=== PATIENT | male | born 1945 | race Caucasian/White ===

== ENCOUNTER → 2020-10-01 13:30 | Outpatient (BNVA) | payer OTHER, SELFPAY | PROVIDERS: PCP Internal Medicine; Visit Provider Urology | DX: Z76.89 Persons encountering health services in other specified circumstances (principal) ==

== ENCOUNTER → 2021-07-07 09:04 | Outpatient (BNVA) | payer OTHER, SELFPAY | PROVIDERS: PCP Internal Medicine; Visit Provider Urology | DX: N40.1 Benign prostatic hyperplasia with lower urinary tract symptoms (principal); R35.0 Frequency of micturition; R35.1 Nocturia | CPT/HCPCS: 51798 ==

== ENCOUNTER 2021-08-25 10:20 | Outpatient (REF) | payer OTHER, SELFPAY ==
[2021-08-25 12:33] LABS: PSA,Total (Free>4and<10) 2.11 ng/mL (0.00-4.00)
== END 2021-08-25 10:21 | disposition home or self-care (01) ==
LOC: HO.HMGCLDS 10:20
PROVIDERS: PCP Internal Medicine; Visit Provider Urology
DX: Z12.5 Encounter for screening for malignant neoplasm of prostate (principal); N13.8 Other obstructive and reflux uropathy; N40.1 Benign prostatic hyperplasia with lower urinary tract symptoms
CPT/HCPCS: 36415; 84153

== ENCOUNTER → 2021-09-03 08:41 | Outpatient (BNVA) | payer OTHER, SELFPAY | PROVIDERS: PCP Internal Medicine; Visit Provider Urology ==

== ENCOUNTER → 2022-03-01 09:33 | Outpatient (BNVA) | payer OTHER, SELFPAY | PROVIDERS: PCP Internal Medicine; Visit Provider Psychiatry & Neurology Neurology | DX: R25.1 Tremor, unspecified (principal); G47.33 Obstructive sleep apnea (adult) (pediatric); R41.89 Other symptoms and signs involving cognitive functions and awareness ==

== ENCOUNTER → 2022-03-08 11:07 | Outpatient (BNVA) | payer OTHER, SELFPAY | PROVIDERS: PCP Internal Medicine; Visit Provider Urology | DX: N40.1 Benign prostatic hyperplasia with lower urinary tract symptoms (principal); R35.1 Nocturia | CPT/HCPCS: 51798 ==

== ENCOUNTER → 2023-03-09 11:38 | Outpatient (BNVA) | payer OTHER, SELFPAY | PROVIDERS: PCP Internal Medicine; Visit Provider Urology | DX: N40.1 Benign prostatic hyperplasia with lower urinary tract symptoms (principal); N13.8 Other obstructive and reflux uropathy; R33.8 Other retention of urine; R35.1 Nocturia; R41.89 Other symptoms and signs involving cognitive functions and awareness; Z79.82 Long term (current) use of aspirin; Z79.899 Other long term (current) drug therapy | CPT/HCPCS: 51798 ==

== ENCOUNTER → 2023-03-14 10:26 | Outpatient (BNVA) | payer OTHER, SELFPAY | PROVIDERS: PCP Internal Medicine; Visit Provider Psychiatry & Neurology Neurology | DX: G47.33 Obstructive sleep apnea (adult) (pediatric) (principal); R41.89 Other symptoms and signs involving cognitive functions and awareness; R25.1 Tremor, unspecified ==

== ENCOUNTER 2023-06-06 14:51 | Emergency (ER) | payer OTHER, SELFPAY ==
--- NOTE | ~2023-06-06 | CT_ITS ---
EXAMINATION: CT HEAD WITHOUT CONTRAST CLINICAL INFORMATION: Leg weakness COMPARISON: Brain MRI February 2018 TECHNIQUE: Contiguous axial imaging was performed from the skull base to vertex without intravenous administration of contrast. This CT examination was performed using dose optimization techniques as appropriate, variously including the following: *Automated exposure control *Adjustment of mA and/or kV according to patient size (this includes techniques or standardized protocols for targeted exams where dose is matched to indication/reason for exam; i.e. extremities or head) *Use of iterative reconstruction technique DLP: 692 mGy-cm FINDINGS: There is no acute intracranial hemorrhage or evidence of territorial infarction. Rocha to white matter differentiation is well preserved. There is no abnormal attenuation within the brain parenchyma. No abnormal mass effect or midline shift is seen. The ventricles and extra-axial CSF spaces are slightly prominent suggestive of mild generalized atrophy and mild nonspecific periventricular white matter disease. Prominent cisterna magna.. No extra-axial fluid collections are identified. The calvarium and scalp soft tissues are normal. The middle ear cavity and mastoid air cells are clear. The visualized paranasal sinuses are clear. CT/CT head/brain wo IV con IMPRESSION: No acute intracranial pathology.
--- NOTE | ~2023-06-06 | XR_ITS ---
EXAMINATION: XR CHEST CLINICAL INFORMATION: Chest pain. COMPARISON: None available. TECHNIQUE: Frontal view of the chest was obtained. FINDINGS: The heart, great vessels, pulmonary vasculature and mediastinum are normal. There is mild scar/subsegmental atelectasis at the lateral left base. No infiltrate, effusion or pneumothorax is seen. There is no acute osseous abnormality. XR/XR chest 1V IMPRESSION: 1. No focal infiltrate or congestive heart failure is seen. 2. There is mild lateral left base scar/subsegmental atelectasis. In the absence of outside comparison radiographs documenting long-term stability, recommend short-term follow chest radiographs to ensure stability/clearance and exclude the possibility of underlying obstructive process.
--- NOTE | 2023-06-06 14:52 | ECG_ITS ---
Test Reason : CHEST PAIN Blood Pressure : / mmHG Vent. Rate : 057 BPM Atrial Rate : 057 BPM P-R Int : 190 ms QRS Dur : 094 ms QT Int : 420 ms P-R-T Axes : 027 020 100 degrees QTc Int : 408 ms Sinus bradycardia Cannot rule out Inferior infarct , age undetermined T-wave inversion in Lateral leads Abnormal ECG No previous ECGs available Referred By: Generic ED Physician Electronically Signed By:JOVANNI LAWRENCE
[2023-06-06 15:21] LABS: MANUAL DIFF FLAG NO
[2023-06-06 15:22] LABS: Basophils Percent Auto 0.4 % (0-2); Eosinophils Absolute Auto 0.2 X10*3/uL (0.0-0.4); Eosinophils Percent Auto 2.2 % (0-4); Hematocrit 45.6 % (42.0-52.0); Hemoglobin 15.1 g/dl (14.0-18.0); Imm Gran Abs Auto 0.01 X10*3/uL (0.00-0.03); Imm Gran Pct Auto 0.1 % (0.0-0.4); Lymphocytes Absolute Auto 1.3 X10*3/uL (1.2-4.9); Mean Corpuscular HGB Conc 33.1 g/dl (31.0-36.0); Mean Corpuscular Hemoglobin 29.5 pg (27.0-33.0); Mean Corpuscular Volume 89.2 fL (80.0-98.0); Mean Platelet Volume 9.3 fL (9.4-12.4); Monocytes Absolute Auto 0.6 X10*3/uL (0.1-1.2); Neutrophils Absolute Auto 4.8 x10*3/uL (2.0-8.3); Neutrophils Percent Auto 70.3 % (45-73); Platelet Count 214 X10*3/uL (160-400); Red Blood Count 5.11 X10*6/uL (4.60-5.80); Red Cell Distribution Width 13.2 % (11.0-16.0); White Blood Count 6.9 X10*3/uL (4.8-10.8)
[2023-06-06 15:23] VITALS: BP 146/65; PULSE 58; RESP 18; TEMP 36.8; O2SAT 97; BMI 25.4
--- NOTE | 2023-06-06 15:23 | ED.GENADULT ---
HPI - General Adult General Chief complaint: Chest Pain Stated complaint: Chest pain/L arm pain Time Seen by Provider: 06/06/23 19:39 Source: patient Mode of arrival: ambulatory Limitations: no limitations History of Present Illness HPI narrative: 78-year-old male via dementia, Tremors, [place], presents to the ED for chronic left-sided chest pain for months and also lower extremity weakness that is chronic but has worsened for the past 3 weeks as per . Patient denies any shortness of breath, pleurisy, coughing up blood, shortness of breath /chest pain on exertion, fever, chills, any recent trauma. Patient denies any slurred speech, facial droop, or paralysis of extremities. Patient denies any loss of vision. states patient's primary care provider is aware of patient's chronic chest pain and he has had multiple workups that were normal as per . Related Data Home Medications Medication Instructions Recorded Confirmed lamotrigine 200 mg tablet 200 mg PO BID 10/01/20 03/09/23 aspirin 81 mg tablet,delayed 81 mg PO DAILY 07/07/21 03/09/23 release atorvastatin 10 mg tablet 10 mg PO DAILY 07/07/21 03/09/23 fexofenadine 180 mg tablet 180 mg PO DAILY 07/07/21 03/09/23 (Lorena Allergy) levothyroxine 100 mcg tablet 100 mcg PO DAILY 09/03/21 03/09/23 omeprazole 20 mg capsule,delayed 20 mg PO DAILY 09/03/21 03/09/23 release fluticasone propionate 50 2 spray intranasal DAILY 03/08/22 03/09/23 mcg/actuation nasal spray,suspension doxycycline hyclate 100 mg tablet 100 mg PO DAILY 03/14/23 Previous Rx's Medication Instructions Recorded finasteride 5 mg tablet 5 mg PO DAILY 90 days #90 tabs 03/09/23 rivastigmine 13.3 mg/24 hour 13.3 mg transdermal DAILY 90 days 03/14/23 transdermal patch #90 ea memantine 7 mg capsule 7 mg PO DAILY #30 ea 03/15/23 sprinkle,extended release 24hr nitrofurantoin 100 mg PO Q12H 7 days #14 caps 06/07/23 monohydrate/macrocrystals 100 mg capsule (Macrobid) Allergies Allergy/AdvReac Type Severity Reaction Status Date / Time No Known Allergies Allergy Verified 03/14/23 10:30 [facility] Past Medical History Medical History (Updated 06/07/23 @ 00:55 by EDUARD Tanner) Dementia Frequency of urination BPH loc w urin obs/LUTS Thyroid disease Hyperlipidemia Hematuria Surgical History Hx of tonsillectomy Hx of colonoscopy History of hernia repair Social History Social History (Updated 03/14/23 @ 10:36 by Ashlee Bhatti CMA) Household Members: Spouse Alcohol intake: current Alcohol intake frequency: a few times a week Alcohol type: hard liquor Patient Tobacco Use Status: Former Tobacco user Smoked in Last 30 Days: No Use of substances other than those prescribed or required for medical reasons: No Advance Directives: No Advance Directives Information Provided: No Current occupational status: retired Physical Exam ED Vital Signs: Vital Signs - 24 hr 06/06/23 15:23 06/06/23 20:00 06/06/23 22:34 Temperature 98.2 F 97.7 F 97.9 F Pulse Rate 58 52 55 Respiratory Rate 18 16 20 Blood Pressure 146/65 H 176/79 H 150/78 H Pulse Oximetry 97 99 95 Oxygen Delivery Method Room Air Room Air Room Air BMI result Body Mass Index 25.4 Const General: cooperative, healthy appearing, comfortable, no acute distress, well developed, alert and awake Orientation/consciousness: oriented to person, oriented to place, oriented to time and patient oriented x3 HENMT Head: Yes normal to inspection, Yes No palpable skull fracture present, Yes normocephalic, Yes atraumatic and No abrasion Eyes General: appearance normal, both eyes and all related structures Neck Neck: Yes normal visual inspection, Yes full ROM, Yes no lymphadenopathy, Yes no meningeal signs, Yes trachea midline, Yes supple, No anterior neck swelling and No tender Chest Chest palpation & inspection: normal inspection of the chest and normal palpation of entire chest wall Resp Effort & Inspection: normal respiratory effort and able to speak in complete sentences Auscultation: clear to auscultation bilaterally Cardio Jugular venous distension: no JVD Heart sounds: S1 normal heart sound present and S2 normal heart sound present GI Inspection: Yes normal to inspection and No abdominal wall ecchymosis Palpation (GI): Soft to palpation, not firm, nontender, no guarding and not rigid General: No CVA tenderness and Yes no CVA tenderness Back/Spine/Pelvis Back: no CVA tenderness, No CVA tenderness and No back tenderness Skin General skin exam: no rashes or lesions noted, elasticity normal and turgor normal Neuro Other: Negative slurred speech. Negative pronator drift. Negative facial droop. All extremities equal strength 5+. [id number] rapid hand movement intact. General: oriented to person, oriented to place, oriented to time, patient oriented x3, gait normal, tone normal, moves all extremities, Normal light touch and pain sensation, no meningeal signs, no focal motor deficits, CN's II-XI intact bilaterally and normal sensation to monofilament Extrem Other: Bilateral lower extremities negative for any swelling, calf pain, or erythema. Motor, neuro, vascular exam is intact. General: Yes normal to inspection and Yes full ROM Psych Appearance: grossly normal, well kempt and not disheveled Course Course Course Narrative: RME: 78-year-old male with past medical history of dementia, cognitive impairment, VEL, BPH, presenting to the ED complaining of left sided chest pressure & nausea worsening x today. Also reports 3 weeks ago developed difficulty walking due to lower extremity weakness/lethargy. denies fever, chills, SOB EKG, Labs, CXR, UA, Viral testing ordered Full HPI, ROS and PE to be performed by primary ED provider. Medical Decision Making Medical Decision Making [facility] Narrative: 78-year-old male presents to ED for chronic left-sided chest pain for months and also chronic left lower extremity weakness that is worse in the past 3 weeks. Patient denies any shortness of breath, shortness of breath/ chest pain on exertion, leg swelling, calf pain, coughing up blood, pleurisy, fever, or chills. Patient denies any slurred speech, facial droop, paralysis of extremities, back pain, or loss of vision. Patient denies any new trauma. 12:48am: EKG negative STEMI. Two troponins negative. Patient is pleasant in the bed throughout whole ED visit. Chest x-ray negative pneumonia. Not suspecting PE. Negative any neuro deficits. On ambulation patient had normal gait and walk on his own. Negative for any wobbling. Negative for any ataxia. Physical THerapy consult was discussed with patient and and they decided to prefer and follow up with PCP due to patient feeling better and has normal gait. UA shows UTI. His CT scan normal. Patient given copy of labs and imaging for follow-up with primary care provider tomorrow. COVID swab negative. Not suspecting PE, CHF, Pneumonia, LAD closure, stroke, or AMS. Patient and giving copy of labs and imaging and told to give pCP copies for follow up. They were informed of left side scar on Xray. Patient presently asymptomatic. Differential Diagnosis Differential Diagnoses: The differential diagnosis associated with the presentation includes ( stroke, pneumonia, myocardial infarction, UTI, rhabdomyolysis, fatigue, electrolyte deficiency, CHF, PE) Admission/Observation Consideration of admission/observation: Escalation of care including admission/observation considered Lab Data MDM Lab Attestation statement: I reviewed the patient's lab results. 06/06/23 15:16 06/06/23 15:16 Labs: Lab Results 06/06/23 06/06/23 06/06/23 Range/Units 15:16 16:10 20:56 WBC 6.9 (4.8-10.8) X10*3/uL RBC 5.11 (4.60-5.80) X10*6/uL Hgb 15.1 (14.0-18.0) g/dl Hct 45.6 (42.0-52.0) % MCV 89.2 (80.0-98.0) fL MCH 29.5 (27.0-33.0) pg MCHC 33.1 (31.0-36.0) g/dl RDW 13.2 (11.0-16.0) % Plt Count 214 (160-400) X10*3/uL MPV 9.3 L (9.4-12.4) fL Immature Gran % (Auto) 0.1 (0.0-0.4) % Neut % (Auto) 70.3 (45-73) % Lymph % (Auto) 19.0 L (20-40) % [place] % (Auto) 8.0 (2-11) % Eos % (Auto) 2.2 (0-4) % Baso % (Auto) 0.4 (0-2) % Lymph # (Auto) 1.3 (1.2-4.9) X10*3/uL [place] # (Auto) 0.6 (0.1-1.2) X10*3/uL Eos # (Auto) 0.2 (0.0-0.4) X10*3/uL Baso # (Auto) 0.0 (0.0-0.2) X10*3/uL Abs Immat Gran (auto) 0.01 (0.00-0.03) X10*3/uL Absolute Neuts (auto) 4.8 (2.0-8.3) x10*3/uL Absolute Nucleated RBC 0.000 (0.0-0.012) X10*3/uL Nucleated RBC % (auto) 0.0 (0.0-0.2) /100WBC Sodium 140 (135-145) mmol/L Potassium 3.9 (3.3-5.1) mmol/L Chloride 109 H (96-108) mmol/L Carbon Dioxide 24 (22-29) mmol/L Anion Gap 11 L (12-20) BUN 28 H (9-16) mg/dL Creatinine 0.91 (0.5-1.4) mg/dL Estim Creat Clear Calc 53.3 Estimated GFR > 60 Random Glucose 126 H (60-115) mg/dL Calcium 10.2 (8.4-10.2) mg/dL Magnesium 2.1 (1.6-2.6) mg/dL Total Bilirubin 0.3 (0.0-1.0) mg/dL AST 17 (5-37) U/L ALT 28 (0-40) U/L Alkaline Phosphatase 84 (39-117) U/L Total Creatine Kinase 45 (38-174) U/L Troponin I High Sens < 2.7 < 2.7 (<3.5-35.0) ng/L B-Natriuretic Peptide 17 (<100) pg/mL Total Protein 7.3 (6.5-8.0) g/dL Albumin 4.4 (3.5-5.0) g/dL Urine Color Urine Appearance Urine pH (5.0-9.0) Ur Specific [place] (1.005-1.025) Urine Protein (Neg-Trace) mg/dL Urine Glucose (UA) (Negative) mg/dL Urine Ketones (Negative) mg/dL Urine Blood (Negative) Urine Nitrite (Negative) Ur Leukocyte Esterase (Negative) Urine RBC (0-2) /HPF Urine WBC (0-5) /HPF Ur Squamous Epith Cells (0-2) /HPF Urine Bacteria (None Seen) Hyaline Casts (0-2) /LPF COVID-19 ([facility]) Negative (Negative) COVID-19 Clin Com See Note 06/06/23 Range/Units 23:52 WBC (4.8-10.8) X10*3/uL RBC (4.60-5.80) X10*6/uL Hgb (14.0-18.0) g/dl Hct (42.0-52.0) % MCV (80.0-98.0) fL MCH (27.0-33.0) pg MCHC (31.0-36.0) g/dl RDW (11.0-16.0) % Plt Count (160-400) X10*3/uL MPV (9.4-12.4) fL Immature Gran % (Auto) (0.0-0.4) % Neut % (Auto) (45-73) % Lymph % (Auto) (20-40) % [place] % (Auto) (2-11) % Eos % (Auto) (0-4) % Baso % (Auto) (0-2) % Lymph # (Auto) (1.2-4.9) X10*3/uL [place] # (Auto) (0.1-1.2) X10*3/uL Eos # (Auto) (0.0-0.4) X10*3/uL Baso # (Auto) (0.0-0.2) X10*3/uL Abs Immat Gran (auto) (0.00-0.03) X10*3/uL Absolute Neuts (auto) (2.0-8.3) x10*3/uL Absolute Nucleated RBC (0.0-0.012) X10*3/uL Nucleated RBC % (auto) (0.0-0.2) /100WBC Sodium (135-145) mmol/L Potassium (3.3-5.1) mmol/L Chloride (96-108) mmol/L Carbon Dioxide (22-29) mmol/L Anion Gap (12-20) BUN (9-16) mg/dL Creatinine (0.5-1.4) mg/dL Estim Creat Clear Calc Estimated GFR Random Glucose (60-115) mg/dL Calcium (8.4-10.2) mg/dL Magnesium (1.6-2.6) mg/dL Total Bilirubin (0.0-1.0) mg/dL AST (5-37) U/L ALT (0-40) U/L Alkaline Phosphatase (39-117) U/L Total Creatine Kinase (38-174) U/L Troponin I High Sens (<3.5-35.0) ng/L B-Natriuretic Peptide (<100) pg/mL Total Protein (6.5-8.0) g/dL Albumin (3.5-5.0) g/dL Urine Color Yellow Urine Appearance Clear Urine pH 5.5 (5.0-9.0) Ur Specific [place] 1.025 (1.005-1.025) Urine Protein Negative (Neg-Trace) mg/dL Urine Glucose (UA) Negative (Negative) mg/dL Urine Ketones 15 (Negative) mg/dL Urine Blood Trace H (Negative) Urine Nitrite Negative (Negative) Ur Leukocyte Esterase Trace H (Negative) Urine RBC 6-10 H (0-2) /HPF Urine WBC 6-10 H (0-5) /HPF Ur Squamous Epith Cells 0-2 (0-2) /HPF Urine Bacteria None Seen (None Seen) Hyaline Casts 0-2 (0-2) /LPF COVID-19 ([facility]) (Negative) COVID-19 Clin Com Independent Interpretation I performed an independent interpretation of an: EKG ( sinus bradycardia. OH interval 190. Ventricular rate 57. KRAS 94. QTC 408. Negative stress) and Plain X-Ray Radiology Impression Discussion of test interpretation with radiology: I have reviewed the radiologist's reading. Independent Historian Clinical information obtained from an independent historian. History obtained from or confirmed by: Spouse External Record Review External record reviewed: Other ( prior ED visit) Tests considered The following testing was considered but not selected: Chest CT Prescription Management I considered prescription management with: Antibiotic Discharge Plan Discharge Clinical Impression: Chest pain, Acute UTI, Weakness Patient Disposition: Home, Self-Care Instructions: Chest Pain (ED), Urinary Tract Infection in Men (ED), Weakness (ED) Additional Instructions: your EKG, blood work, and chest x-ray came back negative for signs of heart attack, pneumonia, or heart failure. CT scan of head came back negative for stroke. UA shows urinary tract infection. You were given copy of labs imaging and EKG please follow-up with your primary care provider with those copies. Return to ED immediately for any slurred speech, facial droop, paralysis of extremities, loss of vision, chest pain, shortness of breath, coughing up blood, chest pain inspiration, leg swelling, calf pain, inability to walk, back pain, urinary/ bowel incontinence, or any other concerning symptoms. Prescriptions: New nitrofurantoin monohyd/m-cryst [Macrobid] 100 mg capsule 100 mg PO Q12H 7 Days Qty: 14 0RF Rx Instructions: must administer with a meal/food No Action memantine 7 mg capsule,sprinkle,ER 24hr 7 mg PO DAILY Qty: 30 0RF lamotrigine 200 mg tablet 200 mg PO BID atorvastatin 10 mg tablet 10 mg PO DAILY aspirin 81 mg tablet,delayed release (DR/EC) 81 mg PO DAILY fexofenadine [Lorena Allergy] 180 mg tablet 180 mg PO DAILY levothyroxine 100 mcg tablet 100 mcg PO DAILY omeprazole 20 mg capsule,delayed release(DR/EC) 20 mg PO DAILY finasteride 5 mg tablet 5 mg PO DAILY 90 Days Qty: 90 1RF fluticasone propionate 50 mcg/actuation spray,suspension 2 spray intranasal DAILY doxycycline hyclate 100 mg tablet 100 mg PO DAILY rivastigmine 13.3 mg/24 hour patch 24 hour 13.3 mg transdermal DAILY 90 Days Qty: 90 6RF Interventions: ED Discharge Assessment Last Done: 06/07/23 01:08 Discharge Date/Time: 06/07/23 01:09 Print Language: Norwegian
[2023-06-06 15:35] LABS: Alanine Aminotransferase 28 U/L (0-40); Albumin Level 4.4 g/dL (3.5-5.0); Alkaline Phosphatase 84 U/L (39-117); Anion Gap 11 (12-20); Aspartate Amino Transferase 17 U/L (5-37); Bilirubin Total 0.3 mg/dL (0.0-1.0); Blood Urea Nitrogen 28 mg/dL (9-16); Calcium 10.2 mg/dL (8.4-10.2); Carbon Dioxide 24 mmol/L (22-29); Chloride 109 mmol/L (96-108); Creatinine Clr Calc Pharmacy 53.3; Estimated Glomerular Filt Rate > 60; Glucose Random 126 mg/dL (60-115); Potassium 3.9 mmol/L (3.3-5.1); Sodium 140 mmol/L (135-145); Total Protein 7.3 g/dL (6.5-8.0)
[2023-06-06 15:42] LABS: Troponin-I High Sensitivity < 2.7 ng/L (<3.5-35.0)
[2023-06-06 15:55] LABS: Magnesium 2.1 mg/dL (1.6-2.6)
[2023-06-06 16:06] LABS: B Type Natriuretic Peptide 17 pg/mL (<100)
[2023-06-06 16:33] LABS: COVID-19 Test Negative (Negative); IDNOW Serial# 08D9AD1C
[2023-06-06 20:00] VITALS: BP 176/79; PULSE 52; RESP 16; TEMP 36.5; O2SAT 99
--- NOTE | 2023-06-06 20:03 | MHC.EDTECH ---
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
[2023-06-06 20:21] VITALS: PULSE 54
--- NOTE | 2023-06-06 21:00 | MHC.EDTECH ---
PATIENT REPEATED BLOOD DRAWN AND SENT TO LAB .
[2023-06-06 21:25] LABS: Troponin-I High Sensitivity < 2.7 ng/L (<3.5-35.0)
[2023-06-06 22:34] VITALS: BP 150/78; PULSE 55; RESP 20; TEMP 36.6; O2SAT 95
--- NOTE | 2023-06-06 23:57 | PC.NURSE ---
Pt ambulated independently with steady gait. Reported some minor dizziness when he first stood up, but otherwise felt okay.
[2023-06-07] LABS: Appearance Urine Clear; Color Urine Yellow; Glucose Urine UA Negative (Negative); Leukocyte Esterase Urine Trace (Negative); Nitrite Urine Negative (Negative); PH 5.5 (5.0-9.0); Specific Gravity - Urine 1.025 (1.005-1.025); UMIC TRIGGER UACC YES; Urine Blood Trace (Negative); Urine Ketones 15 mg/dL (Negative); Urine Protein Negative (Neg-Trace)
[2023-06-07 00:05] LABS: Bacteria Urine None Seen (None Seen); Hyaline Casts Urine 0-2 /LPF (0-2); Squamous Epithelial Cell Urine 0-2 /HPF (0-2); UACC Culture Trigger YES
== END 2023-06-07 01:09 | disposition home or self-care (01) ==
PROVIDERS: Physician Assistant; Emergency Provider Emergency Medicine; PCP Internal Medicine
DX: R07.9 Chest pain, unspecified (principal); N39.0 Urinary tract infection, site not specified; R53.1 Weakness; R00.1 Bradycardia, unspecified; Z20.822 Contact with and (suspected) exposure to COVID-19; E78.5 Hyperlipidemia, unspecified; F03.90 Unspecified dementia, unspecified severity, without behavioral disturbance, psychotic disturbance, mood disturbance, and anxiety; Z87.891 Personal history of nicotine dependence; Z79.82 Long term (current) use of aspirin; Z79.899 Other long term (current) drug therapy
CPT/HCPCS: 36415; 70450; 71045; 80053; 81001; 81003; 82550; 83735; 83880; 84484; 85025; 87086; 87635; 93005; 99284; 99285

== ENCOUNTER 2023-09-07 09:06 | Outpatient (AMB) | payer OTHER, SELFPAY ==
--- NOTE | 2023-09-07 09:12 | MHC.OFFVIS ---
Intake Intake Visit Reasons: 6m/PVR Intake Note: Patient is Present for Follow Up PVR Urology Medication: Finasteride, Tamsulosin Antibiotic Allergies: None Blood Thinners:Aspirin PVR: 15 Compliants: Allergies No Known Allergies Allergy (Verified 03/14/23 10:30) Medication List - Last Reconciled 09/07/23 by Stan Andino MD aspirin 81 mg PO DAILY atorvastatin 10 mg PO DAILY doxycycline hyclate 100 mg PO DAILY fexofenadine (Lorena Allergy) 180 mg PO DAILY finasteride 5 mg PO DAILY 90 days fluticasone propionate 50 mcg/actuation 2 sprays intranasal DAILY lamotrigine 200 mg PO BID levothyroxine 100 mcg PO DAILY memantine 7 mg PO DAILY nitrofurantoin monohyd/m-cryst 100 mg (Macrobid) 100 mg PO Q12H 7 days omeprazole 20 mg PO DAILY rivastigmine 13.3 mg transdermal DAILY 90 days tamsulosin 0.8 mg (2 x 0.4 mg) PO BEDTIME 90 days HPI HPI Comments History of Present Illness Details Genaro is a pleasant male. He is a patient of Dr. Webb. He is seen for the following urologic conditions - lower urinary tract symptoms PVR low Continues with combination therapy Had recent cataract surgery. Had come off tamsulosin. noted difficulty with urination went off tamsulosin Restarted recently and this has made a big difference He also has progressive memory related issues Twelve month follow-up Lower urinary tract symptoms Initial symptoms increased weakness of stream and getting up 2-3 times per night Cystoscopy - prior cystoscopy with trilobar hypertrophy during cytology evaluation Current therapy tamsulosin and finasteride PSA 09/14 2.11 Therapeutic plan continue combination therapy PFSH Medical History (Updated 06/08/23 @ 00:01 by Óscar Mendez) Dementia Frequency of urination BPH loc w urin obs/LUTS Thyroid disease Hyperlipidemia Hematuria Surgical History Hx of tonsillectomy Hx of colonoscopy History of hernia repair Social History (Updated 03/14/23 @ 10:36 by Ashlee Bhatti CMA) Household Members: Spouse Alcohol intake: current Alcohol intake frequency: a few times a week Alcohol type: hard liquor Patient Tobacco Use Status: Former Tobacco user Current occupational status: retired Review of Systems Const Denies chills and Denies fever(s) Card Reports no additional complaints and Denies syncope Resp Denies cough GI Denies abdominal pain and Denies heartburn Reports as per HPI and Denies change in libido Neuro Denies syncope Psych Denies change in libido Endo Denies change in libido Physical Exam Const General: cooperative, healthy appearing, comfortable and no acute distress Orientation/consciousness: patient oriented x3 HEENT Face and sinus: Yes normal facial exam Mouth: moist mucous membranes Neck Neck: Yes normal visual inspection, Yes full ROM and Yes trachea midline Chest Chest palpation & inspection: normal inspection of the chest Resp Effort & Inspection: normal respiratory effort, able to speak in complete sentences and no respiratory distress GI Inspection: Yes normal to inspection Back/Spine/Pelvis Cervical Spine: normal cervical lordosis Thoracic/Lumbar Spine: thoracic and lumbar spine normal to inspection Skin General skin exam: no rashes or lesions noted Neuro General: patient oriented x3, gait normal, tone normal and moves all extremities Extrem General: Yes normal to inspection and Yes capillary refill normal Office Procedures Post Void Residual Post Residual Void Post Void Residual (PVR): 15 [id number] Void Residual by ultrasound Assessment & Plan Assessment & Plan (1) BPH loc w urin obs/LUTS: Code(s): N40.1 - Benign prostatic hyperplasia with lower urinary tract symptoms Plan Twelve month follow-up Orders: Orders AMB Post Void Residual by ultrasound Today N40.1 - Benign prostatic hyperplasia with lower urinary tract symptoms Patient Instructions: Imaging studies, laboratory and physical exam results were discussed and reviewed in detail. No major barriers to patient understanding were identified. An opportunity to ask questions regarding the treatment plan was provided. All questions were answered. The patient expressed understanding and agreement with the above treatment plan. The patient is aware they should contact our office by phone for worsening of their current condition or the appearance of new urologic symptoms. Compliance is encouraged with any medications and followup testing that is ordered. It is a privilege to participate in the urologic care of your patient. If you have any questions or concerns regarding treatment for the above conditions, or other urologic issues, please do not hesitate to contact me. The office telephone contact is [phone]. This note is constructed using voice recognition software. While every effort has been made to ensure accuracy biofuels product development manager errors may have been included. Yours sincerely, Dr Stan Andino MD, [facility] - Urology Providers of Expert, Compassionate Care for the Genitourinary System Coding Level of Care Code Est Pt Level 3 (71485) Diagnoses BPH loc w urin obs/LUTS N40.1 CPT Codes Post Residual Void - PVR CPT Code: 32893-Rehp Void Residual by ultrasound ([id number])
== END 2023-09-07 09:40 | disposition home or self-care (01) ==
PROVIDERS: PCP Internal Medicine; Visit Provider Urology
DX: N40.1 Benign prostatic hyperplasia with lower urinary tract symptoms (principal)
CPT/HCPCS: 99213

== ENCOUNTER → 2023-09-07 09:06 | Outpatient (BNVA) | payer OTHER, SELFPAY | PROVIDERS: PCP Internal Medicine; Visit Provider Urology | DX: N40.1 Benign prostatic hyperplasia with lower urinary tract symptoms (principal); N13.8 Other obstructive and reflux uropathy; Z79.899 Other long term (current) drug therapy | CPT/HCPCS: 51798 ==

== ENCOUNTER 2024-02-07 11:28 | Outpatient (AMB) | payer OTHER, SELFPAY ==
--- NOTE | 2024-02-07 11:29 | A.OFFVIS_ITS ---
Vital Signs 02/07/24 11:30 Height 5 ft 2 in Weight 144 lb 4 oz BMI 26.4 BP 122/78 Blood Pressure Location Rt brachial Position Sitting Respiration 16 Pulse 56 Pulse Source Pulse Oximeter Pulse Oximetry (%) 96 Oxygen Delivery Method Room Air Intake Visit Reasons: Follow up Dementia - LVM w/add Intake Note: Pt presents for a 10 month follow up for dementia. 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 Allergies No Known Allergies Allergy (Verified 02/07/24 11:30) Medication List - Last Reconciled 02/07/24 by Betty Rojas MD aspirin 81 mg PO DAILY atorvastatin 10 mg PO DAILY doxycycline hyclate 100 mg PO DAILY fexofenadine (Lorena Allergy) 180 mg PO DAILY finasteride 5 mg PO DAILY 90 days fluticasone propionate 50 mcg/actuation 2 sprays intranasal DAILY lamotrigine 200 mg PO BID levothyroxine 100 mcg PO DAILY memantine 7 mg PO DAILY memantine 1 tab qam for 4 weeks then 1 tab bid orally 2 times a day; 30 days nitrofurantoin monohyd/m-cryst 100 mg (Macrobid) 100 mg PO Q12H 7 days omeprazole 20 mg PO DAILY rivastigmine 13.3 mg transdermal DAILY 90 days tamsulosin 0.8 mg (2 x 0.4 mg) PO BEDTIME 90 days HPI Comments Details: 78y/o male calls for follow up of sleep apnea on ASV, cognitive impairment and tremors. His 90 day compliance with ASV is 99%. AHI 0.4/hr. He is on exelon patch 13.3 mg/day. No side effects . no hallucinations or other abnormal behavior. His tremors are same.His cognition is worse. No sundowning He is watching a lot of TV and goes to sleep late and has irregular sleep schedule now [facility]LY [facility] Medical History Dementia Frequency of urination BPH loc w urin obs/LUTS Thyroid disease Hyperlipidemia Hematuria Surgical History History of cataract surgery Hx of tonsillectomy Hx of colonoscopy History of hernia repair Social History Household Members: Spouse Alcohol intake: current Alcohol intake frequency: a few times a week Alcohol type: hard liquor Patient Tobacco Use Status: Former Tobacco user Current occupational status: retired Physical Exam Vital Signs: Last Vital Signs Pulse 56 02/07/24 11:30 Resp 16 02/07/24 11:30 BP 122/78 02/07/24 11:30 Pulse Ox 96 02/07/24 11:30 Oxygen Delivery Method Room Air 02/07/24 11:30 BMI result Body Mass Index 26.4 Const General: cooperative and comfortable Neuro Other: left eye - drooped General: tone normal and moves all extremities Cranial nerves: Yes Normal facial strength present Gait exam (Neuro): Other gait observations present (mild off balance) Motor exam (neuro): 5/5 motor strength present throughout and Normal motor muscle tone present throughout Coordination: [id number] test normal Orientation What is the (year) (season) (date) (day) (month)?: season Where are we (state) (county) (town or city) (hospital) (floor)?: state, county, town or city, hospital/clinic and floor Registration Name of 3 unrelated objects clearly and slowly, then ask patient to repeat all 3 of them. (1st repeat determines score. Make sure they can repeat all three): object 1, object 2 and object 3 Attention & Calculation (CHOOSE ONE) Spell WORLD backwards (DLROW): 2 letters Recall Ask patient to repeat the 3 items from question #3.: object 3 Language Show patient a wristwatch & ask what it is. Repeat for pencil.: watch and pencil Ask the patient to repeat the phrase 'No ifs, ands, or buts' after you.: correct Ask the patient to 'take a piece of paper with their right hand' 'fold paper in half' 'place paper on floor': take paper in right hand, fold paper in half and place paper on floor Print the sentence 'CLOSE YOUR EYES' on a piece. If patient actually closes eyes then score.: followed written direction Give patient a blank piece of paper & ask to write a sentence. Score if it contains a noun & verb.: sentence contains subject and verb Ask patient to copy figure of intersecting pentagons exactly. Score if all 10 angles & 2 intersects are included.: all 10 angles present & 2 are intersected Score Score: 21 Assessment & Plan Assessment & Plan (1) Dementia: Code(s): F03.90 - Unspecified dementia, unspecified severity, without behavioral disturbance, psychotic disturbance, mood disturbance, and anxiety Category: Medical (2) Tremors of nervous system: Code(s): R25.1 - Tremor, unspecified Category: Medical (3) Obstructive sleep apnea: Code(s): G47.33 - Obstructive sleep apnea (adult) (pediatric) Category: Medical Plan Continue ASV compliance stressed. rivastigmine to 13.3mg qd Retrial namenda 10 mg qd and increase to bid Medications: New memantine 1 tab qam for 4 weeks then 1 tab bid orally 2 times a day; 30 days 60 tabs 6RF Coding Level of Care Code Est Pt Level 4 (90885) Complex EM visit Add On G2211 Diagnoses Dementia F03.90 Tremors of nervous system R25.1 Obstructive sleep apnea G47.33
[2024-02-07 11:30] VITALS: BP 122/78; PULSE 56; RESP 16; O2SAT 96; BMI 26.4
== END 2024-02-07 12:12 | disposition home or self-care (01) ==
PROVIDERS: PCP Internal Medicine; Visit Provider Psychiatry & Neurology Neurology
DX: F03.90 Unspecified dementia, unspecified severity, without behavioral disturbance, psychotic disturbance, mood disturbance, and anxiety (principal); R25.1 Tremor, unspecified; G47.33 Obstructive sleep apnea (adult) (pediatric)
CPT/HCPCS: 99214; G2211

== ENCOUNTER → 2024-02-07 11:28 | Outpatient (BNVA) | payer OTHER, SELFPAY | PROVIDERS: PCP Internal Medicine; Visit Provider Psychiatry & Neurology Neurology ==

== ENCOUNTER 2024-08-15 13:25 | Outpatient (REF) | payer OTHER, SELFPAY | END 2024-08-15 13:26 | disposition home or self-care (01) | LOC: HO.LNP 13:25 | PROVIDERS: PCP Internal Medicine; Visit Provider Urology | DX: N40.1 Benign prostatic hyperplasia with lower urinary tract symptoms (principal); R35.0 Frequency of micturition; N13.8 Other obstructive and reflux uropathy | CPT/HCPCS: 51798; 81003; 87086 ==

== ENCOUNTER 2024-08-15 13:25 | Outpatient (AMB) | payer OTHER, SELFPAY ==
--- NOTE | 2024-08-15 13:31 | AM.OFFVISNUR ---
Intake Visit Reasons: PVR/UA Allergies No Known Allergies Allergy (Verified 02/07/24 11:30) Office Procedures Post Void Residual Post Residual Void Details: Patient presents to office after reporting this morning that patient was having trouble urinating. Patient able to give urine sample, UA WNL, will send for culture. Bladder scanned for 28mls. Advised patient to take all medication as prescribed, call if anything changes or if he develops signs of infection to seek emergency care. Patient and patient understood and agreeable. Post Void Residual (PVR): 28 [id number] Void Residual by ultrasound Assessment & Plan Assessment & Plan Orders: Orders AMB Urinalysis Automated Today N40.1 - Benign prostatic hyperplasia with lower urinary tract symptoms, R35.0 - Frequency of micturition AMB Post Void Residual by ultrasound Today N40.1 - Benign prostatic hyperplasia with lower urinary tract symptoms, R35.0 - Frequency of micturition
== END 2024-08-15 13:45 | disposition home or self-care (01) ==
PROVIDERS: PCP Internal Medicine; Visit Provider Urology
DX: N40.1 Benign prostatic hyperplasia with lower urinary tract symptoms (principal); R35.0 Frequency of micturition

== ENCOUNTER 2024-08-20 08:55 | Outpatient (AMB) | payer OTHER, SELFPAY ==
[2024-08-20 08:58] VITALS: BP 122/74; BMI 26.9
--- NOTE | 2024-08-20 08:58 | A.OFFVIS_ITS ---
Vital Signs 08/20/24 08:58 Height 5 ft 2 in Weight 147 lb BMI 26.9 BP 122/74 Blood Pressure Location Rt brachial Position Sitting Intake Visit Reasons: Follow up Dementia Intake Note: Patient presents for dementia. memory A little worst Allergies No Known Allergies Allergy (Verified 08/20/24 08:59) Medication List - Last Reconciled 08/20/24 by Marleny Giordano PA-C aspirin 81 mg PO DAILY atorvastatin 10 mg PO DAILY doxycycline hyclate 100 mg PO DAILY fexofenadine (Lorena Allergy) 180 mg PO DAILY finasteride 5 mg PO DAILY 90 days fluticasone propionate 50 mcg/actuation 2 sprays intranasal DAILY lamotrigine 200 mg PO BID levothyroxine 100 mcg PO DAILY memantine 1 tab qam for 4 weeks then 1 tab bid orally 2 times a day; 30 days nitrofurantoin monohyd/m-cryst 100 mg (Macrobid) 100 mg PO Q12H 7 days omeprazole 20 mg PO DAILY rivastigmine 13.3 mg transdermal DAILY 90 days tamsulosin 0.8 mg (2 x 0.4 mg) PO BEDTIME 90 days HPI Comments Details: 78y/o male calls for follow up of sleep apnea on ASV, cognitive impairment and tremors. CPAP use >4 hours 68%, Average 4 hours and 28 min, Pressures [id number], Leaks 40-65.9, AHI 3.7. Mask is more uncomfortable and he pulls it off at night. He is on exelon patch 13.3 mg/day. No side effects . no hallucinations or other abnormal behavior. His cognition is worse. No sundowning. Tremors of the hand and voice head d/t medication and manic mood swings when s tressed. Per Pscychiatry for BPD Lamotrigine 150mg BID and Quietapine 50mg, stopped Mcneil. He tends to be more forgetful lately, forgets what he is doing and his purpose for going into rooms, difficulty with word finding. Watches TV and plays with cat, they stimulate him to do activities, naps through the day, excessive day time fatigue. Goes to bed at 10pm wakes up at 6am, several bathroom visits at night (BPH). Independent with ADLs, helps with dishes and chores in the home, showers, and dresses himself. MMSE 24/30. Denies migraines, Vertigo, balance issues and falls. COPD limits his activities. Likes to play Chess on the computer games, and plays with grand daughter. Mood, generally in good spirits, laughs, dx with depression BPD, and monica, 10 + years on lithium. FORMERLY [facility] Medical History Dementia Frequency of urination BPH loc w urin obs/LUTS Thyroid disease Hyperlipidemia Hematuria Surgical History History of cataract surgery Hx of tonsillectomy Hx of colonoscopy History of hernia repair Social History Household Members: Spouse Alcohol intake: current Alcohol intake frequency: a few times a week Alcohol type: hard liquor Patient Tobacco Use Status: Former Tobacco user Current occupational status: retired Physical Exam Vital Signs: Last Vital Signs BP 122/74 08/20/24 08:58 BMI result Body Mass Index 26.9 Const General: cooperative, comfortable and no acute distress Nutritional Appearance: average body habitus Orientation/consciousness: oriented to person and oriented to place Eyes Pupils: Equal, round and reactive pupils present Neck Neck: Yes full ROM Resp Effort & Inspection: normal respiratory effort and able to speak in complete sentences Neuro General: oriented to person and oriented to place Cranial nerves: Yes CN's II-XII intact bilaterally, Yes Facial sensation intact/muscles of mastication intact, Yes Equal, round and reactive pupils present, Yes Normal accommodation reflex present, Yes Normal facial strength present, Yes Midline tongue present, Yes Symmetric palate elevation present, Yes Ability to bilaterally rotate head present and Yes Ability to bilaterally elevate shoulders present (weak and deconditioned) Gait exam (Neuro): Normal gait present Motor exam (neuro): Tremors during motor activity present (bilateral hands, head and voice) Coordination: [id number] test normal (hands are tremulous, difficulty to touch the finger to nose) Psych Speech and movement: Slowed speech present (Psych), Slowed movement present (Neuro) and Other speech and movement exam findings present (Psych) (Voice tremulous) Affect: normal affect Attitude: cooperative Orientation What is the (year) (season) (date) (day) (month)?: season Where are we (state) (county) (town or city) (hospital) (floor)?: state, county, town or city and floor Registration Name of 3 unrelated objects clearly and slowly, then ask patient to repeat all 3 of them. (1st repeat determines score. Make sure they can repeat all three): object 1, object 2 and object 3 Attention & Calculation (CHOOSE ONE) Ask pt to begin with 100 & count backward by 7. Stop after 5 repeats. If pt cannot ask them to spell the word WORLD backward.: 93, 86, 79 and 72 Spell WORLD backwards (DLROW): 3 letters Recall Ask patient to repeat the 3 items from question #3.: object 1 Language Show patient a wristwatch & ask what it is. Repeat for pencil.: watch and pencil Ask the patient to repeat the phrase 'No ifs, ands, or buts' after you.: correct Ask the patient to 'take a piece of paper with their right hand' 'fold paper in half' 'place paper on floor': take paper in right hand, fold paper in half and place paper on floor Print the sentence 'CLOSE YOUR EYES' on a piece. If patient actually closes eyes then score.: followed written direction Give patient a blank piece of paper & ask to write a sentence. Score if it contains a noun & verb.: sentence contains subject and verb Score Score: 24 Results Reviewed Results Reviewed: CPAP Compliance 68% Pressures 10- [id number] Leaks AHI Assessment & Plan Assessment & Plan (1) Obstructive sleep apnea: Code(s): G47.33 - Obstructive sleep apnea (adult) (pediatric) Category: Medical (2) Cognitive impairment: Code(s): R41.89 - Other symptoms and signs involving cognitive functions and awareness Category: Medical Plan Plan Continue to use CPAP [id number] >6 hours a night. Stressed compliance daily, and nightly, especially when napping in front of the TV. Memantine transdermal patches CBT - referred to psychology today, weekly or monthly check-ins as needed. Medications: Discontinued memantine Discontinued Reason: Duplicate 7 mg PO DAILY 30 ea 0RF Coding Level of Care Code Est Pt Level 4 (51304) Complex EM visit Add On G2211 Diagnoses Obstructive sleep apnea G47.33 Cognitive impairment R41.89
== END 2024-08-20 10:37 | disposition home or self-care (01) ==
PROVIDERS: PCP Internal Medicine; Visit Provider Physician Assistant Medical
DX: G47.33 Obstructive sleep apnea (adult) (pediatric) (principal); R41.89 Other symptoms and signs involving cognitive functions and awareness
CPT/HCPCS: 99214

== ENCOUNTER → 2024-08-20 08:55 | Outpatient (BNVA) | payer OTHER, SELFPAY | PROVIDERS: PCP Internal Medicine; Visit Provider Physician Assistant Medical | DX: F03.90 Unspecified dementia, unspecified severity, without behavioral disturbance, psychotic disturbance, mood disturbance, and anxiety (principal); R25.1 Tremor, unspecified; G47.33 Obstructive sleep apnea (adult) (pediatric) ==

== ENCOUNTER 2024-09-10 09:13 | Outpatient (AMB) | payer OTHER, SELFPAY ==
--- NOTE | 2024-09-10 09:16 | MHC.OFFVIS ---
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 He is a patient of Dr. Webb. He is seen for the following urologic conditions - lower urinary tract symptoms Yearly follow-up PVR low - 10 cc Continues with combination therapy Tamsulosin He also has progressive memory related issues Twelve month follow-up Lower urinary tract symptoms Initial symptoms increased weakness of stream and getting up 2-3 times per night Cystoscopy - prior cystoscopy with trilobar hypertrophy during cytology evaluation Current therapy tamsulosin and finasteride PSA 09/14 2.11 Therapeutic plan continue combination therapy PFSH Medical History Dementia Frequency of urination BPH loc w urin obs/LUTS Thyroid disease Hyperlipidemia Hematuria Surgical History History of cataract surgery Hx of tonsillectomy Hx of colonoscopy History of hernia repair Social History Household Members: Spouse Alcohol intake: current Alcohol intake frequency: a few times a week Alcohol type: hard liquor Patient Tobacco Use Status: Former Tobacco user 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 Procedures Post Void Residual Post Residual Void Post Void Residual (PVR): 10 [id number] Void Residual by ultrasound Results AMB Urinalysis, Automated UA Leukoctes 0 Hellen/uL Last Edit by RONN Rivera on 09/10/24 09:26 UA Nitrite Negative Last Edit by RONN Rivera on 09/10/24 09:26 UA Urobilinogen 0.2 mg/dL Last Edit by RONN Rivera on 09/10/24 09:26 UA Protein 15 mg/dL Last Edit by RONN Rivera on 09/10/24 09:26 UA pH 5.5 Last Edit by RONN Rivera on 09/10/24 09:26 UA Blood 0 Jorge Alberto/uL Last Edit by RONN Rivera on 09/10/24 09:26 UA Specific [place] 1.030 Last Edit by RONN Rivera on 09/10/24 09:26 UA Ketone Negative Last Edit by RONN Rivera on 09/10/24 09:26 UA Bilirubin 0 mg/dL Last Edit by RONN Rivera on 09/10/24 09:26 UA Glucose 0 mg/dL Last Edit by Jonathan Dang CCM on 09/10/24 09:26 Results Reviewed Results Reviewed: Laboratory Last Values Urine pH (Auto) 5.5 09/10/24 09:25 Specific [place] (Auto) 1.030 09/10/24 09:25 Urine Protein (Auto) 15 mg/dL 09/10/24 09:25 Glucose (UA)(Auto) 0 mg/dL 09/10/24 09:25 Urine Ketones (Auto) Negative 09/10/24 09:25 Urine Blood (Auto) 0 Jorge Alberto/uL 09/10/24 09:25 Urine Nitrite (Auto) Negative 09/10/24 09:25 Urine Bilirubin (Auto) 0 mg/dL 09/10/24 09:25 Urine Urobilinogen (Auto) 0.2 mg/dL 09/10/24 09:25 Leukocyte Esterase (Auto) 0 Hellen/uL 09/10/24 09:25 Assessment & Plan Assessment & Plan (1) BPH loc w urin obs/LUTS: Code(s): N40.1 - Benign prostatic hyperplasia with lower urinary tract symptoms Category: Medical (2) Frequency of urination: Code(s): R35.0 - Frequency of micturition Category: Medical (3) Nocturia more than twice per night: Code(s): R35.1 - Nocturia Category: Medical Plan We discussed the nature of the decision and reasonable options for performing a prostate intervention. Interventions include TURP, GreenLight laser enucleation of the prostate, GreenLight laser ablation of the prostate, transurethral incision of the prostate, and I-Tend prostate procedure. Options such as medical therapy were discussed. The relative uncertainties and benefits related to each alternate procedure were adequately discussed. General surgical risks including, but not limited to, pain, bleeding, infection, myocardial infarction, pulmonary embolus, deep vein thrombosis and cerebrovascular accident which may result in further hospitalization were discussed. Full disclosure of the procedure as well as all major risks, benefits and complications were discussed including but not limited to damage to the urethra or bladder neck, recurrent BPH, retrograde ejaculation, bladder infection, urge, de chanell frequency, incomplete emptying, dysuria, remote chance of erectile dysfunction, epididymitis, and meatal stenosis. The success rate of the procedure was discussed. Success of the procedure in the short-term does not necessarily guarantee that long-term success will be maintained. Suitable follow up will need to be maintained. The patient showed understanding of discussion. An opportunity was provided for questions to be answered and wishes to proceed with the following procedure. - Greenlight laser Orders: Orders AMB Urinalysis Automated Today Z13.9 - Encounter for screening, unspecified Patient Instructions: Imaging studies, laboratory and physical exam results were discussed and reviewed in detail. No major barriers to patient understanding were identified. An opportunity to ask questions regarding the treatment plan was provided. All questions were answered. The patient expressed understanding and agreement with the above treatment plan. The patient is aware they should contact our office by phone for worsening of their current condition or the appearance of new urologic symptoms. Compliance is encouraged with any medications and followup testing that is ordered. It is a privilege to participate in the urologic care of your patient. If you have any questions or concerns regarding treatment for the above conditions, or other urologic issues, please do not hesitate to contact me. The office telephone contact is [phone]. This note is constructed using voice recognition software. While every effort has been made to ensure accuracy securities adviser errors may have been included. Yours sincerely, Dr Stan Andino MD, [facility] - Urology Providers of Expert, Compassionate Care for the Genitourinary System Coding Diagnoses BPH loc w urin obs/LUTS N40.1 Frequency of urination R35.0 Nocturia more than twice per night R35.1 CPT Codes Post Residual Void - PVR CPT Code: [id number] Void Residual by ultrasound ([id number])
== END 2024-09-10 10:58 | disposition home or self-care (01) ==
PROVIDERS: PCP Internal Medicine; Visit Provider Urology
DX: Z13.9 Encounter for screening, unspecified (principal)

== ENCOUNTER 2024-11-25 07:44 | Day surgery (SDC) | payer OTHER, SELFPAY ==
[2024-11-21 12:28] VITALS: BMI 26.0
--- NOTE | 2024-11-21 14:39 | P.CONAN_ITS ---
Documented by User: Kim Pearce NP 11/21/24 14:42 HPI - Anesthesia Eval Consult details Narrative: 79yo M for Laser Ablation Prostate w/Green Light Follows [facility] pulmo for COPD, Central sleep apnea, nodules. Eval'd for preop 10/2024 with routine f/u only PMFSH Active Problems Active Problems: All Active Problems (Updated 11/21/24 @ 12:18 by Bailey Argueta RN) Tremors of nervous system (Acute) Cognitive impairment (Acute) Obstructive sleep apnea (Acute) Nocturia more than twice per night (Acute) Dementia (Acute) BPH loc w urin obs/LUTS (Acute) Frequency of urination (Acute) Past Medical History Medical History Bronchitis Mixed hyperlipidemia Bipolar 1 disorder GERD (gastroesophageal reflux disease) Degenerative arthritis Ventral hernia Back pain PVD (peripheral vascular disease) Raynauds disease MCI (mild cognitive impairment) Sleep apnea BPH (benign prostatic hyperplasia) Pulmonary nodules COPD (chronic obstructive pulmonary disease) Dementia Frequency of urination BPH loc w urin obs/LUTS Thyroid disease Hyperlipidemia Hematuria Surgical History Surgical History Hx of vasectomy History of esophagogastroduodenoscopy (EGD) History of cataract surgery Hx of tonsillectomy Hx of colonoscopy History of hernia repair Social History Social History Household Members: Spouse Are you a primary special needs child caregiver to a significant other at home: No Do you presently have visiting nurse or other home services: No Alcohol intake: current Alcohol intake frequency: former alcohol drinker Alcohol type: hard liquor Patient Tobacco Use Status: Former Tobacco user Have you been hit, kicked, punched, or otherwise hurt by someone within the past year? If so, by whom?: No Are you DNR?: No Advance Directives: No Advance Directives Information Provided: Yes Recently lost weight without trying: No Nutrition Risks: No Nutritional Risk Current occupational status: retired Meds Allergies Allergy/AdvReac Type Severity Reaction Status Date / Time albuterol [From Combivent] Allergy Chest Pain Verified 11/25/24 08:32 ipratropium [From Combivent] Allergy Chest Pain Verified 11/25/24 08:32 Home Medications ?Medication ?Instructions ?Recorded ?Confirmed ?Last Taken ?Type lamotrigine 200 mg tablet 200 mg PO BID 10/01/20 11/25/24 11/25/24 History atorvastatin 10 mg tablet 10 mg PO DAILY 07/07/21 11/25/24 Unknown History fexofenadine 180 mg tablet 180 mg PO DAILY 07/07/21 11/25/24 11/25/24 History (Lorena Allergy) levothyroxine 100 mcg tablet 100 mcg PO DAILY 09/03/21 11/25/24 11/25/24 History omeprazole 20 mg capsule,delayed 20 mg PO DAILY 09/03/21 11/25/24 11/25/24 History release fluticasone propionate 50 2 spray intranasal DAILY 03/08/22 11/25/24 Unknown History mcg/actuation nasal spray,suspension Exam Height,Weight and Vital Signs: Height 5 ft 2 in Weight 64.41 kg Assessment and Plan Assessment Anesthesia Assessment: Chart Reviewed Documented by User: Benja Mendieta MD 11/25/24 09:46 PMFSH Past Medical History Medical History Bronchitis Mixed hyperlipidemia Bipolar 1 disorder GERD (gastroesophageal reflux disease) Degenerative arthritis Ventral hernia Back pain PVD (peripheral vascular disease) Raynauds disease MCI (mild cognitive impairment) Sleep apnea BPH (benign prostatic hyperplasia) Pulmonary nodules COPD (chronic obstructive pulmonary disease) Dementia Frequency of urination BPH loc w urin obs/LUTS Thyroid disease Hyperlipidemia Hematuria Family History Family history of problems with anesthesia: No Surgical History Surgical History Hx of vasectomy History of esophagogastroduodenoscopy (EGD) History of cataract surgery Hx of tonsillectomy Hx of colonoscopy History of hernia repair History of Problems with Anesthesia: No Social History Social History Household Members: Spouse Are you a primary special needs child caregiver to a significant other at home: No Do you presently have visiting nurse or other home services: No Alcohol intake: current Alcohol intake frequency: former alcohol drinker Alcohol type: hard liquor Patient Tobacco Use Status: Former Tobacco user Have you been hit, kicked, punched, or otherwise hurt by someone within the past year? If so, by whom?: No Are you DNR?: No Advance Directives: No Advance Directives Information Provided: Yes Recently lost weight without trying: No Nutrition Risks: No Nutritional Risk Current occupational status: retired [employer] Allergies Allergy/AdvReac Type Severity Reaction Status Date / Time albuterol [From Combivent] Allergy Chest Pain Verified 11/25/24 08:32 ipratropium [From Combivent] Allergy Chest Pain Verified 11/25/24 08:32 Home Medications ?Medication ?Instructions ?Recorded ?Confirmed ?Last Taken ?Type lamotrigine 200 mg tablet 200 mg PO BID 10/01/20 11/25/24 11/25/24 History atorvastatin 10 mg tablet 10 mg PO DAILY 07/07/21 11/25/24 Unknown History fexofenadine 180 mg tablet 180 mg PO DAILY 07/07/21 11/25/24 11/25/24 History (Lorena Allergy) levothyroxine 100 mcg tablet 100 mcg PO DAILY 09/03/21 11/25/24 11/25/24 History omeprazole 20 mg capsule,delayed 20 mg PO DAILY 09/03/21 11/25/24 11/25/24 History release fluticasone propionate 50 2 spray intranasal DAILY 03/08/22 11/25/24 Unknown History mcg/actuation nasal spray,suspension Exam Airway Mallampati Class: II TM Dist: <=3cm Neck ROM: Full Loose/Missing/Broken Teeth: Yes, No and Lower Heart: ok Lungs: ok Assessment and Plan Assessment Anesthesia Assessment: Anesthesia Plan Discussed Final Anesthetic Review Family History of Problems with Anesthesia: No History of Problems with Anesthesia: No NPO: Yes ASA Class: IV Final Preanesthetic Review: No Changes in Pt Med Stat, Meds/Allgs Chart Reviewed, Consent Obtained/Reviewed and Anes Risks/Benef Reviewed Patient Risk: High Procedure Risk: Low Anesthetic Plan Anesthetic Plan: GA and Agree w/ Assess. and Plan Disposition: Standard PACU
[2024-11-25] MEDS: Lactated Ringers 1,000 ML 100 ML IVCONT (08:20)
[2024-11-25 08:29] VITALS: BP 147/78; PULSE 71; RESP 18; TEMP 36.7; O2SAT 96
[2024-11-25 08:30] VITALS: BMI 25.3
--- NOTE | 2024-11-25 08:53 | MHC.SHP ---
Pre-Procedural Eval Section A - 24 Hr Update-Section A only Date of Service: 11/25/24 The patient is an INPATIENT: No Changes since office visit: No Cold of Flu in the past 2 weeks, No New Medical Problems, No Changes in Medication and No Patient answered all questions The patient has been examined within 24 hours of the surgical procedure. The History & Physical has been completed within 30 days and I have reviewed it.: Yes Section B - Complete if H&P > 30 days Chief Complaint: Bladder-neck obstruction Details of Present Illness: revision TURP - greenlight laser prostatectomy Allergies: Allergies Allergy/AdvReac Type Severity Reaction Status Date / Time albuterol [From Combivent] Allergy Chest Pain Verified 11/25/24 08:32 ipratropium [From Combivent] Allergy Chest Pain Verified 11/25/24 08:32 Review of Systems Sugical H&P ROS: Negative: Constitution, Cardiovascular, Respiratory, Neurological, Psychiatric, Hem-Onc, Allergic/Immunologic, Gastrointestinal, Genitourinary, Musculoskeletal, Integumentary, Endocrine and Eyes/Ears/Nose/Throat Exam Surgical H&P Exam: Normal: HEENT, Normal: Heart, Normal: Lungs, Normal: Extremities, Normal: Abdomen, Normal: Skin and Normal: Neurological Plan Diagnosis/Plan: Unchanged (greenlight laser) I have reviewed the history and physical and performed a pertinent physical examination on my patient. No changes have occurred unless specified. Time Spent With Patient Time: Total time managing care of this patient today ____ minutes.
[2024-11-25] MEDS: ceFAZolin Sodium/Dextrose,Iso 2 GM/50 ML PIGGYBACK IV (09:17)
--- NOTE | 2024-11-25 09:57 | W.PM.OPN ---
Operative Note Operative Note Date of Service: 11/25/24 Narrative: PreOperative Diagnosis: Recurrent Bladder outlet obstruction Post Operative Diagnosis: Recurrent Bladder outlet obstruction Procedure: GreenLight Laser Enucleation of the prostate CPT 76235 Surgeon: Dr Stan Andino Anesthesia: General History of bladder outlet obstruction. Treated with alpha-mervat and other medications. Still with symptoms. On cystoscopy in office has recurrent tight bladder neck. Recommendation for prostate procedure with laser enucleation of prostate. Risks and benefits have been discussed. Focus was placed on development of retrograde ejaculation which is a normal part of this procedure. Procedure: After informed consent was verified the patient was brought to the operating room and placed in a supine position. Anesthesia was administered per protocol. Patient was placed in modified dorsal lithotomy position and prepped and draped in a sterile fashion. Safety pause time-out was confirmed. Antibiotics have been given. A Twenty-four [place] laser cystoscope was inserted per urethra. No abnormalities were found of the anterior and bulbar urethra. The prostatic urethra shows tight bladder neck recurrent. The bladder was examined and both ureteric orifices were seen in their normal positions away from the area of interest. Bladder trabeculation Grade 1. Using a GreenLight laser with initial settings of 80 porter incisions were made at the 5 and 7 o'clock position. The incisions were taken down from the bladder neck down to the area just proximal of the veru. These were gradually deepened in order to define the lateral aspects of the median lobe area. The deep boundary of enucleation was defined by the prostate surgical capsule. Once clearly defined the grooves were extended in the lateral directions in order to create a deep groove. The median lobe was then ablated and enucleated tissue released into the bladder with the laser power increased to 120 W. Median lobe Once the median lobe area had been cleared, attention was directed to the lateral lobes. Starting with the patient's left lateral lobe. First the 05:00 o'clock groove was further developed. This was moved in the lateral direction to undermine the tissue on the lateral side running from the bladder neck to the prostate apex. The ureteric orifice was used to guide incisions. Prostate tissue was dense but responsive to GreenLight laser. A similar procedure was repeated on the patient's right-hand side. The only differences being the position of the lateral groove at he 7 o'clock position and the secondary groove at the 11 o'clock position, Otherwise the procedure was developed in a mirror fashion. After the majority of tissue had been debulked remnant tissue was ablated with the side fire laser and the curve of the prostate followed up each side wall clearly defining the anterior remnant strip that remained between the 11 and 1 o'clock positions. At completion debris and pieces of prostate were removed from the bladder with irrigation. Both ureteric orifices were reviewed again in shown to be patent in away from any areas of energy damage. The apical area was reviewed and any stray mucosal ooze was controlled. A 22 [place] 30 cc balloon Martin catheter was placed into the bladder using a flexible stylet. Clear efflux was obtained upon irrigation with a Kiley piston syringe. 30 cc was placed in the balloon and gentle traction was placed. A snap was used to hold tension on the catheter to control bleeding during patient moved and transported. A drainage bag was placed. Once transportation is complete to the PACU the snap will be removed. The patient tolerated the procedure well, he was extubated in the operating and transferred in a stable condition to the recovery area. Total Power 50 kW Lasing time 7:54 Procedure start 09:32. Procedure stop 09:52 Pathology: Prostate tissue Drains: Martin catheter
[2024-11-25 10:08] VITALS: BP 148/77; PULSE 65; RESP 16; TEMP 36.2; O2SAT 94
[2024-11-25 10:13] VITALS: BP 153/74; PULSE 62; RESP 18; O2SAT 94
[2024-11-25 10:18] VITALS: BP 154/72; PULSE 60; RESP 18; O2SAT 96
[2024-11-25 10:23] VITALS: BP 157/78; PULSE 63; RESP 18; O2SAT 96
[2024-11-25 10:38] VITALS: BP 154/79; PULSE 61; RESP 18; TEMP 36.2; O2SAT 98
[2024-11-25] MEDS: Acetaminophen 325 MG TABLET 975 MG PO (10:50)
== END 2024-11-25 11:21 | disposition home or self-care (01) ==
PROVIDERS: PCP Internal Medicine; Visit Provider Urology
PROC: (CPT 52648; principal; 2024-11-25 09:50)
DX: N32.0 Bladder-neck obstruction (principal); N40.1 Benign prostatic hyperplasia with lower urinary tract symptoms; R35.0 Frequency of micturition; R35.1 Nocturia; R39.11 Hesitancy of micturition; R39.12 Poor urinary stream; R41.3 Other amnesia; R31.9 Hematuria, unspecified; F03.90 Unspecified dementia, unspecified severity, without behavioral disturbance, psychotic disturbance, mood disturbance, and anxiety; E78.5 Hyperlipidemia, unspecified; E07.9 Disorder of thyroid, unspecified; Z79.82 Long term (current) use of aspirin; Z79.899 Other long term (current) drug therapy; Z98.890 Other specified postprocedural states; Z87.891 Personal history of nicotine dependence
CPT/HCPCS: 52649; 88305; J0690; J2003; J2704; J3010

== ENCOUNTER → 2024-11-25 07:44 | Outpatient (BNV) | payer OTHER, SELFPAY | PROVIDERS: PCP Internal Medicine; Visit Provider Urology | DX: N32.0 Bladder-neck obstruction (principal) | CPT/HCPCS: 52649 ==

== ENCOUNTER → 2024-11-27 08:56 | Outpatient (BNVA) | payer OTHER, SELFPAY | PROVIDERS: PCP Internal Medicine; Visit Provider Urology | DX: Z48.816 Encounter for surgical aftercare following surgery on the genitourinary system (principal) | CPT/HCPCS: 51700; 51798 ==

== ENCOUNTER 2024-12-18 08:51 | Outpatient (AMB) | payer OTHER, SELFPAY ==
[2024-12-18 08:53] VITALS: BP 124/72; PULSE 77; O2SAT 95; BMI 29.6
--- NOTE | 2024-12-18 08:53 | A.OFFVIS_ITS ---
Vital Signs 12/18/24 08:53 Height 5 ft 2 in Weight 162 lb 2 oz BMI 29.6 BP 124/72 Blood Pressure Location Rt brachial Position Sitting Pulse 77 Pulse Source Pulse Oximeter Pulse Oximetry (%) 95 Oxygen Delivery Method Room Air Intake Visit Reasons: Follow up Dementia Intake Note: Patient presents follow up VEL/Cognitive. No compliance. Accompanied by: Spouse Allergies albuterol [From Combivent] Allergy (Verified 12/18/24 08:56) Chest Pain ipratropium [From Combivent] Allergy (Verified 12/18/24 08:56) Chest Pain HPI Comments Details: 79y/o male here for a f/u of sleep apnea, cognitive impairment with tremors. CPAP use >4 hours 68%, Average 4 hours and 28 min, Pressures [id number], Leaks 40-65.9, AHI 3.7. Compliance and dementia They both had Covid and memory difficulty. sleeping more and balance difficulty, unable to walk, loosing balance and a few near misses. Railings were installed for safety and fall risk. He continues to say mask is uncomfortable pulls it off at night, however he aims for 6 hours daily. He says when he goes to the bathroom machine stops and restarts and blows forcefully when he is asleep and it wakes him up as it is too loud. His cognitions is worse, he is on Exelon patch 13.3 mg/day. No side effects . no hallucinations or other abnormal behavior. His says he repeats himself at least 17x a day. He tends to be more forgetful lately, forgets what he is doing and his purpose for going into rooms, difficulty with word finding. Watches TV and plays with cat, they stimulate him to do activities, naps through the day, excessive day time fatigue. No sun-downing. Tremors bilaterally of hands, tremor of voice and head worse all the time, d/t lithium in the past, and manic mood swings when stressed. Per Psychiatry for BPD Lamotrigine 150mg BID and Quietapine 50mg, stopped [place]. Goes to bed at 10pm wakes up at 6am, several bathroom visits at night (BPH), he had LUTS procedure now has un-interrupted sleep. Independent with ADLs, helps with dishes and chores in the home, showers, and dresses himself. Denies migraines and vertigo. Constipation at baseline, willhave a Bm every 3 days, on miralax and stool softener. COPD limits his activities. Likes to play Chess on the computer games, and plays with grand daughter. Diet is poor, eats lots of cookies and limited meals due to stove malfunctioning. Mood is okay, chronic depression and BPD with monica, 10+ years. [facility] Medical History (Updated 12/18/24 @ 17:08 by Marleny Giordano PA-C) Bronchitis Mixed hyperlipidemia Bipolar 1 disorder GERD (gastroesophageal reflux disease) Degenerative arthritis Ventral hernia Back pain PVD (peripheral vascular disease) Raynauds disease MCI (mild cognitive impairment) Sleep apnea BPH (benign prostatic hyperplasia) Pulmonary nodules COPD (chronic obstructive pulmonary disease) Dementia Frequency of urination BPH loc w urin obs/LUTS Thyroid disease Hyperlipidemia Hematuria Surgical History Hx of vasectomy History of esophagogastroduodenoscopy (EGD) History of cataract surgery Hx of tonsillectomy Hx of colonoscopy History of hernia repair Social History Household Members: Spouse Are you a primary managed care specialist to a significant other at home: No Do you presently have visiting nurse or other home services: No Alcohol intake: current Alcohol intake frequency: former alcohol drinker Alcohol type: hard liquor Patient Tobacco Use Status: Former Tobacco user Current occupational status: retired Review of Systems Const All systems reviewed & are unremarkable except as noted in HPI and below Physical Exam Vital Signs: Last Vital Signs Pulse 77 12/18/24 08:53 BP 124/72 12/18/24 08:53 Pulse Ox 95 12/18/24 08:53 Oxygen Delivery Method Room Air 12/18/24 08:53 BMI result Body Mass Index 29.6 Const General: cooperative and comfortable Neuro Other: left eye - drooped, UE Bilateral tremors, head and voice tremors, hypophonia, stooped gait, balance and gait difficulty. General: tone normal and moves all extremities Cranial nerves: Yes Normal facial strength present Gait exam (Neuro): Other gait observations present (mild off balance) Motor exam (neuro): 5/5 motor strength present throughout and Normal motor muscle tone present throughout Psych Attitude: cooperative Results Reviewed Results Reviewed: CPAP use >4 hours 68%, Average 4 hours and 28 min, Pressures [id number], Leaks 40-65.9, AHI 3.7. Will f/u with [facility] for new compliance for Insurance. Assessment & Plan Assessment & Plan (1) Balance disorder: Code(s): R26.89 - Other abnormalities of gait and mobility Category: Medical (2) Cognitive impairment: Code(s): R41.89 - Other symptoms and signs involving cognitive functions and awareness Category: Medical (3) Obstructive sleep apnea: Code(s): G47.33 - Obstructive sleep apnea (adult) (pediatric) Category: Medical Plan Fatigue Sleep Compliance Emphasized regular use of CPAP >4 hours per night. PT for Gait and Balance Difficulties Cognitive decline Will continue him on Memantine 28mg PO daily. Cognitive decline Exelon patch 13.3mg daily, he is on the max dose. Plan for MMSE at next visit to assess the Cognitive deficits. F/U in 4 months Orders: Orders PT Evaluation and Treatment Today R26.89 - Other abnormalities of gait and mobility Medications: New memantine Take this medication after completion of 21 mg PO daily of Memantine. Take this dose 28mg PO daily for ongoing maintenance therapy. 28 mg PO DAILY 30 ea 3RF Discontinued memantine Discontinued Reason: Doctor's Order 1 tab qam for 4 weeks then 1 tab bid orally 2 times a day; 30 days 60 tabs 6RF Patient Instructions: Sleep Hygiene provided: set a scheduled bedtime and wake time to help regulate the circadian rhythm and balance the release of pituitary hormones. Sleep in a dark room, temperatures below 68 degrees, and no devices n bed. Limit caffeinated products 6 hours prior to bed, and limit fluids 2-4 hours prior to bed. Gentle night yoga, diffusing essential oils, and playing soft music can be relaxing. Cognitive Difficulties: Start taking omega 3s, and or eating salmon as tolerable. Engage in meaningful activities daily, walking, biking on the stationary bike, swimming at the gym if possible. Could not increase Exelon for Cognitive disorder, we did increase the Memantine to 28mg PO daily today. Coding Level of Care Code Est Pt Level 4 (48748) Complex EM visit Add On G2211 Diagnoses Balance disorder R26.89 Cognitive impairment R41.89 Obstructive sleep apnea G47.33 Time Spent (min) 30
--- OUTSIDE RECORDS SUMMARY | 2024-12-18 09:35 | XMS_ITS | Encounter Summary ---
Author Organization [facility] Address [id number] [place] [id number] Care Team Providers Care Golf [employer] Maker Name Role Phone Magdalena Webb MD Primary Care Provider [phone] Reason for Referral * Imaging (Routine) - Pending Review Specialty Diagnoses / Procedures Referred By Poppy ward Referred To Contact Radiology Diagnoses Lung nodules Procedures CT Chest wo Contrast Bhavani Platt MD [address] [address] Phone: tel: fax: [facility] Referral ID Status Reason Start Date Expiration Date V isits Requested Visits Authorized [id number] Pending Review 11/19/2024 11/19/2025 1 1 Reason for Visit * Reason Comments Pre-op Exam Clearance for dr maloney Encounter Details Date Type Department Care Team ([facility] st Contact Info) Description 11/19/2024 10:00 AM EST Office Visit Pulmonolgy - [place] [address] [phone] Bhavani Platt MD [address] [address] Mixed sleep apnea (Primary Dx); Chronic obstructive pulmonary disease, unspecified COPD type (CMS/HCC); Lung nodules; Ex-smoker Social History Tobacco Use Types Packs/Day Years Used Date Smoking Tobacco: Former Cigarettes Q uit: 07/25/2011 Passive Smoke Exposure: Past Smokeless Tobacco: Never Alcohol Use Standard Drinks/Week Comments Yes 0 (1 standard drink = 0.6 oz pur e alcohol) Sex and Gender Information Value Date Recorded Sex Assigned at Not on file Legal Sex Male 3:54 PM EST Gender Identity Not on file Sexual Orientation Not on file documented as of this encounter Last Filed Vital Signs Vital Sign Reading Time Taken Comments Blood Pressure 138/69 11/19/2024 10:03 AM EST Pulse 67 11/19/2024 10:03 AM EST Temperature 36.2 ??C (97.2 ??F) 11/19/2024 1 0:03 AM EST Respiratory Rate 16 11/19/2024 10:0 3 AM EST Oxygen Saturation 100% 11/19/2024 10: 03 AM EST Inhaled Oxygen Concentration - - Weight 64.8 kg (142 lb 12.8 oz) 025 10:03 AM EST Height 157.5 cm (5' 2 ) 11/19/2024 10:0 3 AM EST Body Mass Index 26.12 11/19/2024 10:03 AM EST documented in this encounter Progress Notes * Bhavani Platt MD - 11/19/2024 10:00 AM EST ADULT PULMONARY Followup CHIEF COMPLAINT or REASON FOR CONSULTATION: Pre-op Exam (Clearance for dr regalado ) Last seen 05/18/24 HISTORY OF PRESENT ILLNESS: Genaro Romero is a 79 y.o. old, ex-smoker @ 17+ ppy, male w/ rapid progressing dementia h/o COPD/chronic bronchitis, mixed apnea: VEL w/ CSA-on ASV (poor compliance-patient and family wish to takethe financial consequences to continue), COVID (09/2023 w/o Rx), lung nodules (RUL 3 mm and left lobular features 7 mm), mild systolic heart failure EF of 55%, HLD, PVD, Raynaud's syndrome, GERD, ventral hernia, hypothyroidism, BPH, cognitive impairment with dementia, known essential tremor, and bipolar disorder. Patient underwent SMS- overnight polysomnogram on 01/14/2021, showed evidence of mixedapnea w/ significant central apnea, w/ best optimal titration study with ASV. COVID vaccinations: Pfizer. Ex Smoker: age 18 to 67, few cigarettes (1 to 3) --> one small cigar every other day. @ 17 ppy. 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 Little abestsosis exposure. [employer] [place] [employer] in [place]. Pets: cat. & babysit the dog. FH: Uncle w/ COPD and lung cancer. [place] Sleepiness Scale Sitting and reading: Would never doze Watching TV: Would never doze Sitting, inactive in a public place (e.g. a theatre or a meeting): Would never doze As a passenger in a car for an hour without a break: Would never doze Lying down to rest in the afternoon when circumstances permit: Slight chance of dozing Sitting and talking to someone: Would never doze Sitting quietly after a lunch without alcohol: Would never doze In a car, while stopped for a few minutes in traffic: Would never doze Total score: 1 Compliance study (11/20/23 to 11/18/24): > 4 hrs use 43%, AHI 3.4, moderate leak. Since last seen: -Not been Hospitalized: REVIEW OF SYSTEMS: Review of Systems Constitutional: Negative for chills, decreased appetite, diaphoresis, fever, malaise/fatigue and night sweats. HENT: Negative for congestion. Cardiovascular: Positive for dyspnea on exertion. Negative for chest pain, irregular heartbeat and leg swelling. Respiratory: Positive for snoring. Negative for cough, hemoptysis, shortness of breath, sputum production and wheezing. Endocrine: Negative for cold intolerance and heat intolerance. Skin: Negative for rash. Gastrointestinal: Negative for abdominal pain, constipation, diarrhea and dysphagia. Genitourinary: Negative for dysuria. ALLERGIES: Allergies Allergen Reactions Ipratropium-Albuterol Ipratropium-albuterol [combivent Respimat] Combivent Other Reaction(s): Chest tightness Pt states he gets chest pain Intolerant to Combivent (question chest discomfort), tolerate albuterol in the past. ACTIVE MEDICATIONS: Outpatient Medications Marked as Taking for the 11/19/24 encounter (Office Visit) with Bhavani Platt MD Medication Sig Dispense Refill atorvastatin (LIPITOR) 10 mg tablet Take 1 Tablet by mouth daily. cholecalciferol (VITAMIN D-3) 50 mcg (2,000 unit) capsule Take 2,000 Units by mouth daily. Take by mouth. OTC doxycycline hyclate (VIBRA-TABS) 100 mg tablet Take 1 Tablet by mouth as needed for Other (Rosaceae). Life Skills Worker, Dr. Foster fills meds fexofenadine (ANIRUDH) 180 mg tablet Take 1 Tablet by mouth at bedtime. Buy OTC finasteride (PROSCAR) 5 mg tablet Take 1 Tablet by mouth daily. Urologist, Dr. Andino fills meds ipratropium-albuteroL (Combivent Respimat) 20-100 mcg/actuation inhaler Inhale 1 Puff into the lungs 4 times daily. 3 inhalers & 3 refills cnevb-gl-4-vkm-twi-nfgjztq-ast (MegaRed Joseph-3 Krill Oil) [id number] mg capsule Take 500 mg by mouth daily. Buy OTC lamoTRIgine (LaMICtal) 150 mg tablet Take 1 Tablet by mouth 2 times daily. [facility] provider fills meds levothyroxine (SYNTHROID, LEVOTHROID) 100 mcg tablet TAKE 1 TABLET BY MOUTH EVERY DAY memantine (NAMENDA) 10 mg tablet Take 1 Tablet by mouth daily. Neurologist, Dr. Rojas fills meds mv-min/folic/K1/lycopen/lutein (MEN 50 PLUS MULTIVITAMIN ORAL) Take 1 Tablet by mouth daily. Take 1Tab by mouth daily. OTC omeprazole (PriLOSEC) [address] capsule Take 1 Capsule by mouth daily. Take 1 capsule by mouth daily. OTC QUEtiapine (SEROquel) 50 mg tablet Take 1 Tablet by mouth daily. [facility] provider fills meds rivastigmine (EXELON) 13.3 mg/24 hour Inject 13.3 mg into the skin daily. Neurologist, Dr. Rojas fills meds tamsulosin (FLOMAX) 0.4 mg 24 hr capsule Take 1 Capsule by mouth. Urologist, Sina fills meds PROVIDER ATTESTS THAT THE MEDICATION LIST WAS OBTAINED, REVIEWED AND UPDATED. PAST MEDICAL HISTORY: Patient Active Problem List Diagnosis Date Noted Abnormal chest x-ray 07/10/2024 Cataract 07/10/2024 Chronic obstructive pulmonary disease (CMS/HCC) 07/10/2024 Pulmonary nodules 10/30/2023 Benign prostatic hyperplasia without lower urinary tract symptoms 01/09/2023 Central sleep apnea 01/14/2019 MCI (mild cognitive impairment) 01/14/2019 Tremor 12/30/2015 Raynaud disease 04/26/2013 Peripheral vascular disease ([facility]) 04/08/2013 Back pain 11/26/2010 Ventral hernia 11/26/2010 Degenerative arthritis of lumbar spine 11/17/2010 Displacement of lumbar intervertebral disc without myelopathy 11/17/2010 Esophageal reflux 09/28/2006 Diverticulitis of colon without hemorrhage 08/15/2006 Bipolar 1 disorder with moderate monica ([facility]) 11/28/2005 Hypothyroidism 11/28/2005 Mixed hyperlipidemia 11/28/2005 Past Surgical History: Procedure Laterality Date COLONOSCOPY N/A 2002 PROCEDURE: HISTORICAL COLONOSCOPY; COMMENT: diverticulosis COLONOSCOPY N/A 2013 PROCEDURE: HISTORICAL COLONOSCOPY; COMMENT: no polyps HERNIA REPAIR PROCEDURE: HISTORICAL HERNIA REPAIR/ING UPPER GASTROINTESTINAL ENDOSCOPY 09/28/2006 PROCEDURE: [place] UPPER GI ENDOSCOPY PERFORMED; COMMENT: normal on PPI rx. VASECTOMY PROCEDURE: [place] VASECTOMY UNI/BI SPX W/POSTOP SEMEN EXAMS Past Surgical History: Procedure Laterality Date COLONOSCOPY N/A 2002 PROCEDURE: HISTORICAL COLONOSCOPY; COMMENT: diverticulosis COLONOSCOPY N/A 2013 PROCEDURE: HISTORICAL COLONOSCOPY; COMMENT: no polyps HERNIA REPAIR PROCEDURE: HISTORICAL HERNIA REPAIR/ING UPPER GASTROINTESTINAL ENDOSCOPY 09/28/2006 PROCEDURE: [place] UPPER GI ENDOSCOPY PERFORMED; COMMENT: normal on PPI rx. VASECTOMY PROCEDURE: [place] VASECTOMY UNI/BI SPX W/POSTOP SEMEN EXAMS FAMILY HISTORY: Family History Problem Relation Name Age of Onset Heart attack Father initially at his 40', smoker, drinker SOCIAL HISTORY Social History Socioeconomic History Marital status: Spouse name: Not on file Number of children: Not on file Years of education: Not on file Highest education level: Not on file Occupational History Not on file Tobacco Use Smoking status: Former Current packs/day: 0.00 Types: Cigarettes Quit date: 07/25/2011 Years since quittin.3 Passive exposure: Past Smokeless tobacco: Never Substance and Sexual Activity Alcohol use: Yes Drug use: No Sexual activity: Not on file Comment: lives with Other Topics Concern Not on file Social History Narrative IMMUNIZATION: Immunization History Administered Date(s) Administered H1N1 Inj Preservative Free 10/07/2009 Influenza Quadravalent, MDCK, 0.5ml, preservative free (Flucelvax) 6mo and older 07/19/2019 Influenza trivalent, 0.5mL (Fluad) 65yo and older 06/15/2015, 07/14/2017, 07/09/2018, 06/14/2020, 05/10/2021, 06/24/2022, 07/06/2023 Influenza trivalent, 0.5mL, preservative free (Fluarix; FluLaval; Fluzone) ages 6mo and older (Afluria) 3 years and older 08/03/2005, 09/03/2006, 07/24/2007, 08/18/2008, 06/28/2009, 08/06/2010, 08/25/2011, 07/25/2012, 07/25/2013, 07/20/2014 Pfizer (ages 12 & older) Bivalent, COVID-19 06/24/2022 Pfizer SARS-CoV-2 COVID-19, mRNA, LNP-S, preservative free 12/26/2020, 07/02/2021, 01/22/2022 Pneumococcal conjugate 13 valent (Prevnar 13, PCV13) 2mo and older 12/30/2015 Pneumococcal polysaccharide 23 valent (Pneumovax 23) 2yo and older 07/27/2012 Td Tetanus diptheria (Tdvax) 7yo and older 12/29/2017 Tdap Tetanus diptheria acellular pertussis (Boostrix; Adacel) 7yo and older 03/16/2007 Zoster Live 04/26/2013 PHYSICAL EXAM: Visit Vitals BP 138/69 Pulse 67 Temp 36.2 ??C (97.2 ??F) (Temporal) Resp 16 Ht 1.575 m (62 ) Wt 64.8 kg (142 lb 12.8 oz) SpO2 100% BMI 26.12 kg/m?? Smoking Status Former BSA 1.66 m?? Physical Exam Constitutional: Appearance: Normal appearance. HENT: Head: Normocephalic and atraumatic. Nose: No congestion. Eyes: Pupils: Pupils are equal, round, and reactive to light. Cardiovascular: Rate and Rhythm: Normal rate and regular rhythm. Heart sounds: No murmur heard. Pulmonary: Effort: Pulmonary effort is normal. No respiratory distress. Breath sounds: Normal breath sounds. No stridor. No wheezing, rhonchi or rales. Abdominal: General: Bowel sounds are normal. There is no distension. Palpations: Abdomen is soft. Tenderness: There is no abdominal tenderness. Musculoskeletal: Right lower leg: No edema. Left lower leg: No edema. Neurological: Mental Status: He is alert. Diagnostic: CURRENTS ICD-10 PULMONARY DIAGNOSIS 1. Mixed sleep apnea 2. Chronic obstructive pulmonary disease, unspecified COPD type (CMS/HCC) 3. Lung nodules 4. Ex-smoker ASSESSMENT/PLAN: 1. Mixed sleep apnea. -Pathophysiology, diagnostic, and various treatment options regarding sleep apnea (VEL/CSA/mixed apnea/OHS) were discussed. Risks and benefits of CPAP/Bipap/iVaps use along with risks of nontreatmentwere discussed. Patient agreed not to drive or operate heavy machinery if he/she should feel sleepy, heat treat puller to a safe part of the road and not resume until fully awake. Both the medical and financial implications of poor compliance with NIPPV were discussed. All issues regarding financial aspects of NIPPV to be addressed w/ DME vendor, and insurance company. All questions were answered. -Patient is on the ASV, Min EPAP 12 cm H2O, Max EPAP 15 cm H2O, Max PS 13 cm H2O. -Await for follow-up echocardiogram 06/2025. -Patient and wish to continue current treatment, and given the leak, patient agreed to shave and replace mask. They will reach out to DME vendor, [facility]. 2. COPD/chronic bronchitis -Pathophysiology of COPD/chronic bronchitis were discussed. Treatment options of the various inhalers, along with techniques of use, and side effects were discussed. Maintenace of care of obstructivelung disease health such as various vaccinations, smoking cessation & avoidance of chemicals/fumes/inhalants were discussed. All questions were answered. -Continue Combivent 1 puff, 4 times daily. 3. Lung nodules w/ subcentimeter mediastinal adenopathy, ex-smoker @ 17 ppy family history of lung cancer. -Pathophysiology, differential diagnosis and diagnostic options regarding lung nodules were again discussed. -Patient does not qualify for low-dose screening CAT scan of the chest (03/2025). -Patient would like to proceed with annual follow-up chest CT, order placed. -Follow up with Magdalena Webb MD for the other co-morbilities. RETURN TO THE NEXT VISIT: Based on physical exam, symptomatology, tests requested and baseline pulmonary evaluation/disease, I instructed the patient to come back to see me in 3 months for reevaluation after the test has beendone or earlier if the patient needed. Thanks Magdalena Webb MD for allowing me to have the opportunity to assist in the care of this patient. This chart was generated by the [employer] EMR system and [employer] speech recognition software and may contain inherent errors or omissions not intended by the user. Grammatical errors, random word insertions, deletions, pronoun errors and incomplete sentences are occasional consequences of this technologydue to software limitations. Not all errors are caught or corrected. If there are questions or concerns about the content of this note or information contained within the body of this dictation they should be addressed directly with the author for clarification. @ELECSIG@ documented in this encounter Plan of Treatment Upcoming Encounters Date Type Department Care Team (Late st Contact Info) Description 01/08/2025 1:15 PM EDT Office Visit Adult Medicine [address] [phone] Kesha Thomas CARDIOLOGY PHYSICIAN ASSISTANT [address] [place], [place] Scheduled Orders Name Type Priority Associated Diagnoses Orde r Schedule CT Chest wo Contrast Imaging Routine Lung nodules Expected: 04/18/2025, Expires: 11/19/2025 documented as of this encounter Visit Diagnoses Diagnosis Mixed sleep apnea- Primary Other organic sleep apnea Chronic obstructive pulmonary disease, unspecified COPD type (CMS/HCC) Lung nodules Other diseases of lung, not elsewhere classified Ex-smoker Personal history of tobacco use, presenting hazards to health documented in this encounter Care Teams Golf [employer] Maker Relationship Specialty Start Date End Date Magdalena Webb MD [address] [place] [address] PCP - General 09/21/10 documented as of this encounter
--- OUTSIDE RECORDS SUMMARY | 2024-12-18 09:35 | XMS_ITS | Clinical Summary ---
Author Organization [address] [facility] Address [address] [place] [address] Phone Care Team Providers Care Site Project Manager Name Role Phone Magdalena Webb MD Primary Care Provider [phone] Allergies Active Allergy Reactions Criticality Noted Date Comments Ipratropium-Albuterol 01/17/2024 Ipratropium-albuterol [combivent Respimat] Combivent Other Reaction(s): Chest tightness Pt states he gets chest pain Intolerant to Combivent (question chest discomfort), tolerate albuterol in the past. Medications atorvastatin (LIPITOR) 10 mg tablet Take 1 Tablet by mouth daily. 4 Active cholecalciferol (VITAMIN D-3) 50 mcg (2,000 unit) capsule Take 2,000 Units by mouth daily. Take by mouth. OTC Active doxycycline hyclate (VIBRA-TABS) 100 mg tablet Take 1 Tablet by mouth as needed for Other (Rosaceae). Mortgage Underwriter , Dr. Foster fills meds Active fexofenadine (ANIRUDH) 180 mg tablet Take 1 Tablet by mouth at bedtime. Buy OTC Active finasteride (PROSCAR) 5 mg tablet Take 1 Tablet by mouth daily. Urologist, Dr. Andino fills meds Active ipratropium-albut Star (Combivent Respimat) 20-100 mcg/actuation inhaler Inhale 1 Puff into the lungs 4 times daily. 3 inhalers & 3 refills 4 05/23/20 25 Active xadmt-oe-0-dha-ep o-ovbrxzc-qnb (MegaRed [place]-3 Krill Oil) 090-647-78-64 mg capsule Take 500 mg by mouth daily. Buy OTC Active lamoTRIgine (LaMICtal) 150 mg tablet Take 1 Tablet by mouth 2 times daily. [facility] provider fills meds Active levothyroxine (SYNTHROID, LEVOTHROID) 100 mcg tablet TAKE 1 TABLET BY MOUTH EVERY DAY 4 Active memantine (NAMENDA) 10 mg tablet Take 1 Tablet by mouth daily. Neurologist, Dr. Rojas fills meds Active mv-min/folic/K1/l ycopen/lutein (MEN 50 PLUS MULTIVITAMIN ORAL) Take 1 Tablet by mouth daily. Take 1 Tab by mouth daily. OTC Active omeprazole (PriLOSEC) [address] capsule Take 1 Capsule by mouth daily. Take 1 capsule by mouth daily. OTC Active QUEtiapine (SEROquel) 50 mg tablet Take 1 Tablet by mouth daily. EDUARD [facility] provider fills meds Active rivastigmine (EXELON) 13.3 mg/24 hour Inject 13.3 mg into the skin daily. Neurologist, Dr. Rojas fills meds Active tamsulosin (FLOMAX) 0.4 mg 24 hr capsule Take 1 Capsule by mouth. UrologistSina fills meds Active Active Problems Problem Noted Date Diagnosed Date Abnormal chest x-ray 07/10/2024 Cataract 07/10/2024 Overview (08/29/2024): Surgery in 2022, Cataract removed from both eyes Chronic obstructive pulmonary disease 07/10/2024 Pulmonary nodules 10/30/2023 Benign prostatic hyperplasia without lower urinary tract symptoms 01/09/2023 Overview (08/29/2024): follows with Dr. Andino Central sleep apnea 01/14/2019 Overview (08/29/2024): cpap treatment through neurology - Dr Gonzalez [facility] Polysomnogram PAP treatment study. Date 01/14/2021. Wt 140#; BMI 26; SE 83 % SM 85 %; spent 22 % of the study in REM. On ASV, RDI 4 (AHI 4), Central apneas 1; Obstructive apneas 0; Mixed apneas 0; hypopneas 26; RERAs 0; and, average oxygen saturation was 94%. For the entire study, PLMs ~5. Adaptive servo patient with EPAP range 12-15 pressure support 0-13; max pressure 25; backup respiratory rate auto. MCI (mild cognitive impairment) 01/14/2019 Overview (08/29/2024): Follows with Dr. Duval Tremor 12/30/2015 Overview (08/29/2024): Follows with neurology, Dr. Duval Raynaud disease 04/26/2013 Overview (08/29/2024): See rheumatology note 03/2013 Peripheral vascular disease 04/08/2013 Overview (08/29/2024): Right leg pain: moderate fem pop disease on testing at [facility] vascular (2009) Back pain 11/26/2010 Overview (08/29/2024): MRI 2009: IMPRESSION: Moderate spondylosis. Small right paramedian disc herniations at L3-4 and L4-5, causing no nerve root impingement. Mild bilateral L4 foraminal narrowing, with mild displacement but no compression of either L4 nerve root. Vascular study (-) claudication Ventral hernia 11/26/2010 Degenerative arthritis of lumbar spine 1 Displacement of lumbar inter vertebral disc without myelopathy 11/17/2010 Esophageal reflux 09/28/2006 Overview (08/29/2024): Normal EGD 1.4.07 on PPI treatment. Discussed side effect 2017. Diverticulitis of colon without hemorrhage 08/15 Overview (08/29/2024): identified at colonoscopy 2002. Bipolar 1 disorder with moderate monica 6 Hypothyroidism 11/28/2005 Mixed hyperlipidemia 11/28/2005 Encounters Date Type Department Care Team Description 11/19/2024 10:00 AM EST Office Visit Pulmonolgy - [place] [address] [place] [address] Bhavani Platt MD Mixed sleep apnea (Primary Dx); Chronic obstructive pulmonary disease, unspecified COPD type (CMS/HCC); Lung nodules; Ex-smoker from Last 3 Months Immunizations Name Administration Dates Next Due H1N1 Inj Preservative Free 10/07/2009 Influenza Quadravalent, MDCK , 0.5ml, preservative free (Flucelvax) 6mo and older 07/19/2019 Influenza trivalent, 0.5mL ( Fluad) 65yo and older 07/06/2023,06/24/2022,05/10/2021,06/14,07/09/2018,07/14/2017,06/15/2015 Influenza trivalent, 0.5mL, preservative free (Fluarix; FluLaval; Fluzone) ages 6mo and older (Afluria) 3 years and older 07/20/2014,07/25/2013,07/25/2012,08/25,08/06/2010,06/28/2009,08/18/2008 ,07/24/2007,09/03/2006,08/03/2005 Pfizer (ages 12 & older) Biv alent, COVID-19 06/24/2022 Pneumococcal conjugate 13 va lent (Prevnar 13, PCV13) 2mo and older 12/30/2015 Pneumococcal polysaccharide 23 valent (Pneumovax 23) 2yo and older 07/27/2012 Td Tetanus diptheria (Tdvax) 7yo and older 12/29/2017 Tdap Tetanus diptheria acell ular pertussis (Boostrix; Adacel) 7yo and older 03/16/2007 Zoster Live 04/26/2013 Surgical History Surgery Date Site/Laterality Comments HERNIA REPAIR PROCEDURE: HISTORICAL HERNIA REPAIR/ING VASECTOMY PROCEDURE: AK VASECTOMY UNI/BI SPX W/POSTOP SEMEN EXAMS COLONOSCOPY 2002 N/A PROCEDURE: HISTORICAL COLONOSCOPY; COMMENT: diverticulosis COLONOSCOPY 2013 N/A PROCEDURE: HISTORICAL COLONOSCOPY; COMMENT: no polyps UPPER GASTROINTESTINAL ENDOSCOPY 09/28/2006 PROCEDURE: AK UPPER GI ENDOSCOPY PERFORMED; COMMENT: normal on PPI rx. Medical History Medical History Date Comments Unspecified hypothyroidism 11/28/2005 DX:Un specified hypothyroidism Bipolar disorder, unspecifie d (CMS/HCC) 11/28/2005 DX:Bipolar disorder, unspeci fied (HCC) Mixed hyperlipidemia 11/28/2005 DX:Mixed hy perlipidemia Diverticulosis of colon (wit hout mention of hemorrhage) 08/15/2006 DX:Diverticulosis of colon ( without mention of hemorrhage) Special screening for malign ant neoplasms, colon 08/15/2006 DX:Special screening for mal ignant neoplasms, colon; COMMENT: Negative colonoscopy 06.05.03 performed for the investigation of minor rectal bleeding. No colon cancer screening necessary until 2012. Esophageal reflux 09/28/2006 DX:Esophageal reflux; COMMENT: Normal EGD 09.28.06 on PPI treatment. Back pain 11/26/2010 DX:Back pain Historical Medical DX 11/26/2010 DX:Ventral hernia Tick bite 07/25/2012 DX:Tick bite Raynaud disease 04/26/2013 DX:Raynaud disea se; COMMENT: See rheumatology note 03/2013 Tremor 12/30/2015 DX:Tremor VEL (obstructive sleep apnea) 01/14/2019 DX :VEL (obstructive sleep apnea); COMMENT: cpap treatment through neurology MCI (mild cognitive impairment) 01/14/2019 DX:MCI (mild cognitive impairment); COMMENT: Follows with Dr. Duval Family History Medical History Relation Name Comments Heart attack Father initially at hi s 40', smoker, drinker Relation Name Status Comments Father Social History Tobacco Use Types Packs/Day Years [...] on file Sexual Orientation Not on file Obstetrics History Last Filed Vital Signs Vital Sign Reading [...] Mass Index 26.12 11/19/2024 10:03 AM EST Plan of Treatment Upcoming Encounters Date Type Department Care Team (Late st Contact Info) Description 01/08/2025 1:15 PM EDT Office Visit Adult Medicine [facility] [address] [place], [place] [phone] Kesha Thomas NP [address] [place], [place] Health Maintenance Due Date Last Done Comments Zoster Vaccines (2 of 3) 06/21/2013 04/26/2013 RSV Immunization Patients 60+ Years Old (1 - 1-dose 75+ series) 2022 Depression Screening 09/03/2022 Falls Risk Assessment 09/03/2022 Social Influencers of Health Screening 09/03/2022 COVID-19 Vaccine ( season) 2024 06/24/2022, 01/22/2022, 07/02/2021, Additional history exists Influenza Vaccine (#1) 2024 , 06/24/2022, 05/10/2021, Additional history exists DTaP,Tdap,and Td Vaccines (3 - Td or Tdap) 12/30/2027 12/29/2017, 03/16/2007 Cholesterol Screening (Lipid Panel) 01/06/2028 01/05/2023 Hepatitis C Screening Completed 10/23/2013 Pneumococcal Vaccine: 50+ Years Completed 12/30/2015, 07/27/2012 HIB Vaccines Aged Out No longer eligi ble based on patient's age to complete this topic HPV Vaccines Aged Out No longer eligi ble based on patient's age to complete this topic Hepatitis A Vaccines Aged Out No long er eligible based on patient's age to complete this topic Hepatitis B Vaccines Aged Out No long er eligible based on patient's age to complete this topic IPV Vaccines Aged Out No longer eligi ble based on patient's age to complete this topic MMR Vaccines Aged Out No longer eligi ble based on patient's age to complete this topic Meningococcal ACWY Vaccine Aged Out N o longer eligible based on patient's age to complete this topic Meningococcal B Vacine Aged Out No lo nger eligible based on patient's age to complete this topic RSV Immunization Patients Under 20 months Aged Out No longer eligible based on patient's age to complete this topic Varicella Vaccines Aged Out No longer eligible based on patient's age to complete this topic Procedures Procedure Name Priority Date/Time Associated Diagnosis Comments LIPID PANEL Routine 01/05/2023 HEPATITIS C SCREENING Routine 10/23/2013 from Last 3 Months or Most Recently Relevant to Health Maintenance Results * Lipid panel (01/05/2023) LDL/HDL Ratio 2 0 - 4 Triglycerides 51 0 - 150 mg/dL Cholesterol 160 0 - 200 mg/dL HDL 71 >=40 mg/dL LDL Cholesterol 79 0 - 100 mg/dL Blood Venous blood specimen / Unknown Historical Provider LAB BLOOD ORDERABLES Inga l Result * Hepatitis C Screening (10/23/2013) Hepatitis C Screening Abstracted us Historical Provider HEALTH MAINTENANCE Final Result from Last 3 Months or Most Recently Relevant to Health Maintenance Insurance [facility] [place] [address] Care Teams Site Project Manager Relationship Specialty Start Date End Date Magdalena Webb MD [address] [place] [address] PCP - General 09/21/10
== END 2024-12-18 09:59 | disposition home or self-care (01) ==
LOC: HO.HSMS 08:52
PROVIDERS: PCP Internal Medicine; Visit Provider Physician Assistant Medical
DX: R26.89 Other abnormalities of gait and mobility (principal); R41.89 Other symptoms and signs involving cognitive functions and awareness; G47.33 Obstructive sleep apnea (adult) (pediatric)
CPT/HCPCS: 99214

== ENCOUNTER 2025-01-09 11:21 | Outpatient (AMB) | payer OTHER, SELFPAY ==
--- NOTE | 2025-01-09 11:22 | MHC.OFFVIS ---
Intake Visit Reasons: [facility]- follow up Intake Note: Patient is present for [facility] F/U Urology Medication:FINASTERIDE,TAMSULOSIN Antibiotic Allergy:NONE Blood Thinner:NONE Tennis Racket Repairer Required: No Allergies albuterol [From Combivent] Allergy (Verified 01/09/25 11:24) Chest Pain ipratropium [From Combivent] Allergy (Verified 01/09/25 11:24) Chest Pain HPI Comments Details: Genaro is a pleasant male. He is a patient of Dr. Webb. He is seen for the following urologic conditions - lower urinary tract symptoms Telemedicine Evaluation 15 min Consultation [email or web address] Video Follow-up discussion with 6 weeks ago [facility] laser Happy with count urination She has a much stronger stream Only getting up once at night which is down from 2-3 times Will come off tamsulosin Six-month follow-up office He also has progressive memory related issues Lower urinary tract symptoms Initial symptoms increased weakness of stream and getting up 2-3 times per night Cystoscopy - prior cystoscopy with trilobar hypertrophy during cytology evaluation Current therapy tamsulosin and finasteride PSA 09/14 2.11 Therapeutic plan continue combination therapy PFSH Medical History Bronchitis Mixed hyperlipidemia Bipolar 1 disorder GERD (gastroesophageal reflux disease) Degenerative arthritis Ventral hernia Back pain PVD (peripheral vascular disease) Raynauds disease MCI (mild cognitive impairment) Sleep apnea BPH (benign prostatic hyperplasia) Pulmonary nodules COPD (chronic obstructive pulmonary disease) Dementia Frequency of urination BPH loc w urin obs/LUTS Thyroid disease Hyperlipidemia Hematuria Surgical History Hx of vasectomy History of esophagogastroduodenoscopy (EGD) History of cataract surgery Hx of tonsillectomy Hx of colonoscopy History of hernia repair Social History Household Members: Spouse Are you a primary clinical care leader to a significant other at home: No Do you presently have visiting nurse or other home services: No Alcohol intake: current Alcohol intake frequency: former alcohol drinker Alcohol type: hard liquor Patient Tobacco Use Status: Former Tobacco user Current occupational status: retired Review of Systems Const All systems reviewed & are unremarkable except as noted in HPI and below Reports no additional complaints Resp Reports no additional complaints GI Reports no additional complaints Reports as per HPI Musc Reports no additional complaints Physical Exam Telemedicine evaluation Appropriate responses Regular breathing rate and rhythm HEENT Head: Yes normal to inspection Ears: hearing grossly normal bilaterally Eyes General: appearance normal, both eyes and all related structures Neck Neck: Yes normal visual inspection Chest Chest palpation & inspection: normal inspection of the chest Resp Effort & Inspection: normal respiratory effort and able to speak in complete sentences Telehealth Telehealth Telehealth Platform: [employer] Location of provider rendering services: practice address Location of patient: address on file Patient Identification confirmed using: Name, : Yes Telehealth method: video Patient verbally consented to treatment: Yes Patient verbally consented to billing insurance company: Yes Patient informed of any privacy concerns related to visit: Yes Assessment & Plan Assessment & Plan (1) BPH loc w urin obs/LUTS: Code(s): N40.1 - Benign prostatic hyperplasia with lower urinary tract symptoms Category: Medical (2) Nocturia more than twice per night: Code(s): R35.1 - Nocturia Category: Medical Plan Six-month follow-up office Patient Instructions: This note is constructed using voice recognition software. While every effort has been made to ensure accuracy director of corporate communications errors may have been included. Imaging studies, laboratory and physical exam results were discussed and reviewed in detail. No major barriers to patient understanding were identified. An opportunity to ask questions regarding the treatment plan was provided. All questions were answered. The patient expressed understanding and agreement with the above treatment plan. The patient is aware they should contact our office by phone for worsening of their current condition or the appearance of new urologic symptoms. Compliance is encouraged with any medications and followup testing that is ordered. It is a privilege to participate in the urologic care of your patient. If you have any questions or concerns regarding treatment for the above conditions, or other urologic issues, please do not hesitate to contact me. The office telephone contact is [phone]. Sincerely, Dr Stan Andino MD, [facility] - Urology Compassionate Specialist Care for the Genitourinary System Coding Level of Care Code Tele Est Pt Level 3 (04340) Diagnoses BPH loc w urin obs/LUTS N40.1 Nocturia more than twice per night R35.1
--- OUTSIDE RECORDS SUMMARY | 2025-01-09 14:05 | XMS_ITS | Encounter Summary ---
Author Organization [facility] Address [address] [place] [id number] Care Team Providers Care Rn Labor And Delivery Name Role Phone Magdalena Webb MD Primary Care Provider [phone] Reason for Visit * Reason Comments Follow-up 6 month f/u for Hypo thyroidism, MCl Encounter Details Date Type Department Care Team (Late st Contact Info) Description 01/08/2025 1:15 PM EDT Office Visit Adult Medicine [facility] [address] [place] [address] Kesha Thomas NP [address] [place] [id number] MCI (mild cognitive impairment) (Primary Dx); Mixed hyperlipidemia; Hypothyroidism, unspecified type; Benign prostatic hyperplasia without lower urinary tract symptoms; Pulmonary nodules; Chronic obstructive pulmonary disease, unspecified COPD type (CMS/HCC V24, CMS/HCC V28); Encounter for screening for cardiovascular disorders; Encounter for screening for malignant neoplasm of prostate Social History Tobacco Use Types Packs/Day Years [...] Sign Reading Time Taken Comments Blood Pressure 147/65 01/08/2025 1:26 PM EDT Provider will rechk Pulse 62 01/08/2025 1:26 PM EDT Temperature 36.1 ??C (97 ??F) 01/08/2025 1:2 6 PM EDT Respiratory Rate 16 01/08/2025 1:26 PM EDT Oxygen Saturation 96% 01/08/2025 1:2 6 PM EDT Inhaled Oxygen Concentration - - Weight 67.9 kg (149 lb 12.8 oz) 01/08/2025 1:26 PM EDT Height 154.9 cm (5' 1 ) 01/08/2025 1:26 PM EDT Body Mass Index 28.3 01/08/2025 1:26 PM EDT documented in this encounter Ordered Prescriptions Prescription Sig Dispense Quantity Refills Last Filled Start Date End Date levothyroxine (SYNTHROID, LEVOTHROID) 100 mcg tablet Take 1 tablet (100 mcg total) by mouth 1 (one) time each day. 90 each 01/08/2025 documented in this encounter Progress Notes * Kesha Thomas, AMY - 01/08/2025 1:15 PM EDT PATIENT'S PCP: Magdalena Webb MD LAST VISIT IN THIS DEPARTMENT: Visit date not found I have obtained verbal consent from Genaro Romero prior to the recording. I have advised Genaro Romero that he may refuse the recording and require the recording to be turned off at any time during this encounter. Genaro Romero is a 79 y.o. (: 1945) male who presents today for: Chief Complaint Patient presents with Follow-up 6 month f/u for Hypothyroidism, MCl SUBJECTIVE History of Present Illness The patient is a 79-year-old male who presents for chronic medical management and prescription management. He contracted COVID-19 on 09/25/2024, from which he has since recovered. However, persistent brain fog is reported post-recovery. No recent falls are reported, and he maintains his ability to regain balance after minor trips. He does not endorse feelings of sadness or depression. Physical activity is maintained using a treadmill. A history of benign prostatic hyperplasia (BPH) is noted, with prostate surgery performed due to anenlarged prostate. All subsequent tests returned normal results. No hematuria or dysuria is reported, and an improvement in urinary flow is noted. A scheduled appointment with his urologist is set for tomorrow, during which PSA levels will be checked. Proscar 5 mg is continued, and the dosage of tamsulosin has been reduced from 2 to 1 pill. Chronic obstructive pulmonary disease (COPD) is managed without reports of shortness of breath. Inhalers are used throughout the day, and a consultation with Dr. Ferrer, first aid teacher, occurred in October 2024. Pulmonary nodules are being monitored by his first aid teacher. He quit smoking cigars a longtime ago. Severe sleep apnea is managed with an APAP machine at night, which has significantly improved his condition. Hypothyroidism is managed with levothyroxine 100 mcg daily. No hot or cold intolerance Mild cognitive impairment is noted, and he is under the care of a neurologist, although the last visit is not recalled. Namenda 10 ng is currently prescribed. Bipolar disorder is managed under the care of EDUARD Santos, [facility]. Lamotrigine 150 mg is currently prescribed. No suicidal ideations Lipitor 10 mg is taken for cholesterol management. No muscle soreness,yellowing of the skin or abdominal pain reported. Health Maintenance: Due covid vac, RSV vac and shingle vac. Tdap due in 12/2027 Review Of System Review of Systems Constitutional: Negative. Respiratory: Negative. Cardiovascular: Negative. Gastrointestinal: Negative. Endocrine: Negative. Genitourinary: Negative. Musculoskeletal: Negative. Skin: Negative. Neurological: Negative. Hematological: Negative. PAST MEDICAL HISTORY: Patient Active Problem List Diagnosis Date Noted Abnormal chest x-ray 07/10/2024 Cataract 07/10/2024 Chronic obstructive pulmonary disease ([facility] V24, [facility] V28) 07/10/2024 Pulmonary nodules 10/30/2023 Benign prostatic hyperplasia without lower urinary tract symptoms 01/09/2023 Central sleep apnea 01/14/2019 MCI (mild cognitive impairment) 01/14/2019 Tremor 12/30/2015 Raynaud disease 04/26/2013 Peripheral vascular disease ([facility] V24) 04/08/2013 Back pain 11/26/2010 Ventral hernia 11/26/2010 Degenerative arthritis of lumbar spine 11/17/2010 Displacement of lumbar intervertebral disc without myelopathy 11/17/2010 Esophageal reflux 09/28/2006 Diverticulitis of colon without hemorrhage 08/15/2006 Bipolar 1 disorder with moderate monica ([facility] V24, [facility] V28) 11/28/2005 Hypothyroidism 11/28/2005 Mixed hyperlipidemia 11/28/2005 Past Surgical History: Procedure Laterality Date COLONOSCOPY N/A 2002 PROCEDURE: HISTORICAL COLONOSCOPY; COMMENT: diverticulosis COLONOSCOPY N/A 2013 PROCEDURE: HISTORICAL COLONOSCOPY; COMMENT: no polyps HERNIA REPAIR PROCEDURE: HISTORICAL HERNIA REPAIR/ING UPPER GASTROINTESTINAL ENDOSCOPY 09/28/2006 PROCEDURE: [place] UPPER GI ENDOSCOPY PERFORMED; COMMENT: normal on PPI rx. VASECTOMY PROCEDURE: [place] VASECTOMY UNI/BI SPX W/POSTOP SEMEN EXAMS SOCIAL HISTORY: Social History Tobacco Use Smoking status: Former Current packs/day: 0.00 Types: Cigarettes Quit date: 07/25/2011 Years since quittin.4 Passive exposure: Past Smokeless tobacco: Never Substance Use Topics Alcohol use: Yes FAMILY HISTORY: Family History Problem Relation Name Age of Onset Heart attack Father initially at his 40', smoker, drinker Family Status Relation Name Status Father (Not Specified) No partnership data on file Social Influencer of Health (SIOH): The following portions of the patient's chart were reviewed in this encounter and updated as appropriate: OBJECTIVES Vitals: 01/08/25 1326 BP: (!) 147/65 Pulse: 62 Resp: 16 Temp: 36.1 ??C (97 ??F) TempSrc: Temporal SpO2: 96% Weight: 67.9 kg (149 lb 12.8 oz) Height: 1.549 m (61 ) Body mass index is 28.3 kg/m??. Plan is deferred until next visit BP Readings from Last 5 Encounters: 01/08/25 (!) 147/65 11/19/24 138/69 07/10/24 133/70 05/23/24 130/80 01/19/24 120/60 Wt Readings from Last 5 Encounters: 01/08/25 1326 67.9 kg (149 lb 12.8 oz) 11/19/24 1003 64.8 kg (142 lb 12.8 oz) 07/10/24 1322 67.9 kg (149 lb 12.8 oz) 05/23/24 1049 66.2 kg (146 lb) 01/19/24 0956 66.2 kg (146 lb) Allergies Allergen Reactions Ipratropium-Albuterol Ipratropium-albuterol [combivent Respimat] Combivent Other Reaction(s): Chest tightness Pt states he gets chest pain Intolerant to Combivent (question chest discomfort), tolerate albuterol in the past. Active Medications: Current Outpatient Medications Medication Instructions atorvastatin (LIPITOR) 10 mg, oral, Daily cholecalciferol (VITAMIN D-3) 50 mcg (2,000 unit) capsule Take 2,000 Units by mouth daily. Take by mouth. OTC fexofenadine (ANIRUDH) 180 mg tablet Take 1 Tablet by mouth at bedtime. Buy OTC finasteride (PROSCAR) 5 mg tablet Take 1 Tablet by mouth daily. Urologist, Dr. Andino fills meds ipratropium-albuteroL (Combivent Respimat) 20-100 mcg/actuation inhaler Inhale 1 Puff into the lungs 4 times daily. 3 inhalers & 3 refills sflwy-qv-3-fsj-hzy-meauvob-ast (MegaRed [place]-3 Krill Oil) [id number] mg capsule Take 500 mg by mouth daily. Buy OTC lamoTRIgine (LaMICtal) 150 mg tablet Take 1 Tablet by mouth 2 times daily. EDU[facility] provider fills meds levothyroxine (SYNTHROID, LEVOTHROID) 100 mcg, oral, Daily memantine (NAMENDA) 10 mg tablet Take 1 [...] Inject 13.3 mg into the skin daily. NeurologistDr. Rojas fills meds tamsulosin (FLOMAX) 0.4 mg 24 hr capsule Take 1 Capsule by mouth. UrologistSina fills meds Physical Exam Vitals reviewed. Constitutional: Appearance: Normal appearance. Cardiovascular: Rate and Rhythm: Normal rate and regular rhythm. Pulses: Normal pulses. Heart sounds: Normal heart sounds. Pulmonary: Effort: Pulmonary effort is normal. Breath sounds: Normal breath sounds. Abdominal: General: Bowel sounds are normal. Palpations: Abdomen is soft. Musculoskeletal: General: Normal range of motion. Cervical back: Normal range of motion and neck supple. Skin: General: Skin is warm and dry. Neurological: General: No focal deficit present. Mental Status: He is alert. Mental status is at baseline. IMAGING No Pertinent Imaging LABORATORY: CBC: No results found for: WBC , HGB , HCT , MCV , PLT CMP: No results found for: NA , K , CL , CO2 , GLUCOSE , BUN , CREATININE , CALCIUM , PROT , ALBUMIN , BILITOT , AST , ALT , URICACID , PHOS , MG , ALKPHOS , CKTOTAL , EGFR A1c/Microalbuminuria/LDL/GFR: No results found for: HGBA1C Lab Results Component Value Date MICROALBCREA Abstracted 08/07/2007 Lipids: Lab Results Component Value Date CHOL 160 01/05/2023 TRIG 51 01/05/2023 HDL 71 01/05/2023 TSH: No results found for: TSH PSA: No results found for: PSA No results found for: LDLCALC 1. MCI (mild cognitive impairment) 2. Mixed hyperlipidemia 3. Hypothyroidism, unspecified type 4. Benign prostatic hyperplasia without lower urinary tract symptoms 5. Pulmonary nodules 6. Chronic obstructive pulmonary disease, unspecified COPD type (CMS/HCC V24, CMS/HCC V28) 7. Encounter for screening for cardiovascular disorders 8. Encounter for screening for malignant neoplasm of prostate Assessment & Plan 1. Health maintenance: - Advised to receive the RSV vaccine at local pharmacy - Routine blood work will be ordered - Follow-up appointment with Dr. Webb will be scheduled 2. Benign prostatic hyperplasia (BPH): - Prostate surgery has improved urinary flow - No issues with urination, blood in urine, or pain during urination reported - Currently taking tamsulosin 0.4 mg once daily and Proscar 5mg daily - PSA test will be included in upcoming blood work to monitor condition 3. Chronic obstructive pulmonary disease (COPD)/ Pulmonary nodule: - No shortness of breath reported - Continues to use inhalers as prescribed - Saw Dr. Salinas in 10/2024 for pulmonology follow-up - Chest CT scan ordered by pulmonology to monitor lung nodules 4. Sleep apnea: - Using APAP machine at night, which has significantly improved management of severe sleep apnea 5. Hypothyroidism: - Currently on levothyroxine 100 mcg daily - Thyroid levels will be checked during upcoming blood work 6. Mild cognitive impairment: - Reports increased brain fog following COVID-19 infection in 09/2024 - Currently taking Namenda - Will continue to follow up with neurology as needed 7. Bipolar disorder: - Taking lamotrigine 150 mg daily - Under the care of EDUARD Santos, who works with the psychiatrist team 8. Hyperlipidemia: - Advised to continue taking Lipitor 10 mg daily - Maintain a healthy diet and engage in regular physical activity such as walking on the treadmill - Cholesterol levels will be checked as it has been over 2 years since the last test FOLLOW-UP: Follow up in about 5 months (around 06/10/2025) for Follow with Dr. Webb. Health Maintenance Due Topic Date Due Zoster Vaccines (2 of 3) 06/21/2013 RSV Immunization Adult Patients (1 - 1-dose 75+ series) Never done Social Influencers of Health Screening Never done COVID-19 Vaccine (2023- season) 2024 Kesha Thomas NP [address] Today's documentation was made using voice recognition software.This note may contain grammatical errors secondary to this software. documented in this encounter Plan of Treatment Upcoming Encounters Date Type Department Care Team (Late st Contact Info) Description 01/21/2025 9:30 AM EDT Evaluation Outpatient Rehabilitation - [address] [phone] Conrad Romero, ANNETTE 06/11/2025 9:45 AM EDT Office Visit [address] [phone] Magdalena Webb MD [address] [place] [id number] Scheduled Orders Name Type Priority Associated Diagnoses Orde r Schedule Comprehensive metabolic panel Lab Routine MCI (mild cognitive impairment) Mixed hyperlipidemia Hypothyroidism, unspecified type Benign prostatic hyperplasia without lower urinary tract symptoms Chronic obstructive pulmonary disease, unspecified COPD type ([facility] V24, [facility] V28) Encounter for screening for cardiovascular disorders Encounter for screening for malignant neoplasm of prostate Expected: 01/08/2025, Expires: 07/10/2025 Lipid panel with reflex to direct LDL Lab Routine Encounter for screening for cardiovascular disorders 1 Occurrences starting 01/08/2025 until 01/08/2026 Thyroid stimulating hormone with reflex to free t4 and free t3 Lab Routine MCI (mild cognitive impairment) Mixed hyperlipidemia Hypothyroidism, unspecified type Benign prostatic hyperplasia without lower urinary tract symptoms Chronic obstructive pulmonary disease, unspecified COPD type ([facility] V24, [facility] V28) Encounter for screening for cardiovascular disorders Encounter for screening for malignant neoplasm of prostate 1 Occurrences starting 01/08/2025 until 07/10/2025 CBC and differential Lab Routine MCI (mild cognitive impairment) Mixed hyperlipidemia Hypothyroidism, unspecified type Benign prostatic hyperplasia without lower urinary tract symptoms Chronic obstructive pulmonary disease, unspecified COPD type ([facility] V24, [facility] V28) Encounter for screening for cardiovascular disorders Encounter for screening for malignant neoplasm of prostate Expected: 01/08/2025, Expires: 07/10/2025 Prostate specific antigen screen Lab Routine Encounter for screening for malignant neoplasm of prostate 1 Occurrences starting 01/08/2025 until 07/10/2025 documented as of this encounter Visit Diagnoses Diagnosis MCI (mild cognitive impairment)- Primary Mild cognitive impairment, so stated Mixed hyperlipidemia Hypothyroidism, unspecified type Benign prostatic hyperplasia without lower urinary tract symptoms Pulmonary nodules Other diseases of lung, not elsewhere classified Chronic obstructive pulmonary disease, unspecified COPD type ([facility] V24, [facility] V28) Encounter for screening for cardiovascular disorders Encounter for screening for malignant neoplasm of prostate documented in this encounter Discontinued Medications Medication Sig Discontinue Reason Start Date End Da te doxycycline hyclate (VIBRA-TABS) 100 mg tablet Take 1 Tablet by mouth as needed for Other (Rosaceae). Haul Driver, Dr. Foster fills meds Therapy completed 01/08/2025 levothyroxine (SYNTHROID, LEVOTHROID) 100 mcg tablet TAKE 1 TABLET BY MOUTH EVERY DAY Reorder 02/12/2024 01/08/2025 documented as of this encounter Additional Health Concerns Assessment Noted Time PHQ-9 Depression Total Score: 0 01/09/20 25 1:00 PM EDT documented as of this encounter Care Teams Rn Labor And Delivery Relationship Specialty Start Date End Date Magdalena Webb MD [address] [place] [address] PCP - General 09/21/10 documented as of this encounter
--- OUTSIDE RECORDS SUMMARY | 2025-01-09 14:05 | XMS_ITS | Clinical Summary ---
Author Organization [address] [place] [address] Address [address] [place] [address] Phone Care Team Providers Care Seal Delivery Vehicle Team Technician Name Role Phone Magdalena Webb MD Primary Care Provider [phone] Allergies Active Allergy Reactions Criticality Noted Date Comments Ipratropium-Albuterol 01/17/2024 Ipratropium-albuterol [combivent Respimat] Combivent Other Reaction(s): Chest tightness Pt states he gets chest pain Intolerant to Combivent (question chest discomfort), tolerate albuterol in the past. Medications cholecalciferol (VITAMIN D-3) 50 mcg (2,000 unit) capsule Take 2,000 Units by mouth daily. Take by mouth. OTC Active fexofenadine (ANIRUDH) 180 mg tablet Take 1 Tablet by mouth at bedtime. Buy OTC Active finasteride (PROSCAR) 5 mg tablet Take 1 Tablet by mouth daily. Urologist, Dr. Andino fills meds Active ipratropium-albu teroL (Combivent Respimat) 20-100 mcg/actuation inhaler Inhale 1 Puff into the lungs 4 times daily. 3 inhalers & 3 refills 05/23/20 24 025 Active zdktz-za-3-dha-e ln-zryzrqe-ttm (MegaRed [place]-3 Krill Oil) [id number] mg capsule Take 500 mg by mouth daily. Buy OTC Active lamoTRIgine (LaMICtal) 150 mg tablet Take 1 Tablet by mouth 2 times daily. [facility] provider fills meds Active memantine (NAMENDA) 10 mg tablet Take 1 Tablet by mouth daily. Neurologist , Dr. Rojas fills meds Active mv-min/folic/K1/ lycopen/lutein (MEN 50 PLUS MULTIVITAMIN ORAL) Take 1 Tablet by mouth daily. Take 1 Tab by mouth daily. OTC Active omeprazole (PriLOSEC) [address] capsule Take 1 Capsule by mouth daily. Take 1 capsule by mouth daily. OTC Active QUEtiapine (SEROquel) 50 mg tablet Take 1 Tablet by mouth daily. [facility] provider fills meds Active rivastigmine (EXELON) 13.3 mg/24 hour Inject 13.3 mg into the skin daily. Neurologist , Dr. Rojas fills meds Active tamsulosin (FLOMAX) 0.4 mg 24 hr capsule Take 1 Capsule by mouth. UrologistSina fills meds Active atorvastatin (LIPITOR) 10 mg tablet Take 1 tablet (10 mg total) by mouth 1 (one) time each day. 90 tablet 1 01/08/20 25 Active levothyroxine (SYNTHROID, LEVOTHROID) 100 mcg tablet Take 1 tablet (100 mcg total) by mouth 1 (one) time each day. 90 each 01/09/20 25 Active atorvastatin (LIPITOR) 10 mg tablet Take 1 Tablet by mouth daily. 07/10/20 24 025 Discontinued doxycycline hyclate (VIBRA-TABS) 100 mg tablet Take 1 Tablet by mouth as needed for Other (Rosaceae). Dermatologi stDr. Foster fills meds 025 Discontinued(Th erapy completed) levothyroxine (SYNTHROID, LEVOTHROID) 100 mcg tablet TAKE 1 TABLET BY MOUTH EVERY DAY 02/12/20 24 025 Discontinued(Re order) Active Problems Problem Noted Date Diagnosed Date Abnormal chest x-ray 07/10/2024 Cataract 07/10/2024 Overview (08/29/2024): Surgery in 2022, Cataract removed from both eyes Chronic obstructive pulmonar y disease (CMS/HCC V24, CMS/[facility] V28) 07/10/2024 Pulmonary nodules 10/30/2023 Benign prostatic hyperplasia without lower urinary tract symptoms 01/09/2023 Overview (08/29/2024): follows with Dr. Andino Central sleep apnea 01/14/2019 Overview (08/29/2024): cpap treatment through neurology - Dr Gonzalez [facility] Polysomnogram PAP treatment study. [...] See rheumatology note 03/2013 Peripheral vascular disease ([facility] V24) 2012 Overview (08/29/2024): Right leg pain: moderate fem pop disease on testing at [facility] vascular (2009) Back pain 11/26/2010 Overview (08/29/2024): [...] at colonoscopy 2002. Bipolar 1 disorder with mode rate monica ([facility] V24, [facility] V28) 11/28/2005 Hypothyroidism 11/28/2005 Mixed hyperlipidemia 11/28/2005 Encounters Date Type Department Care Team Description 01/08/2025 1:15 PM EDT Office Visit Adult Medicine [address] [phone] Kesha Thomas NP MCI (mild cognitive impairment) (Primary Dx); Mixed hyperlipidemia; Hypothyroidism, unspecified type; Benign prostatic hyperplasia without lower urinary tract symptoms; Pulmonary nodules; Chronic obstructive pulmonary disease, unspecified COPD type ([facility] V24, [facility] V28); Encounter for screening for cardiovascular disorders; Encounter for screening for malignant neoplasm of prostate 11/19/2024 10:00 AM EST Office Visit Pulmonolgy - [address] [place] [address] Bhavani Platt MD Mixed sleep apnea (Primary Dx); Chronic obstructive pulmonary disease, unspecified COPD type ([facility] V24, [facility] V28); Lung nodules; Ex-smoker from Last 3 Months Immunizations Name Administration Dates Next Due H1N1 Inj Preservative Free 10/07/2009 Influenza Quadravalent, MDCK , 0.5ml, preservative free (Flucelvax) 6mo and older 07/19/2019 Influenza trivalent, 0.5mL ( Fluad) 65yo and older 07/06/2023,06/24/2022,05/10/2021,06/14,07/09/2018,07/14/2017,06/15/2015 Influenza trivalent, 0.5mL, preservative free (Fluarix; FluLaval; Fluzone) ages 6mo and older (Afluria) 3 years and older 07/20/2014,07/25/2013,07/25/2012,08/25,08/06/2010,06/28/2009,08/18/2008 ,07/24/2007,09/03/2006,08/03/2005 Pfizer (ages 12 & older) Haley knight, COVID-19 06/24/2022 Pneumococcal conjugate 13 va lent (Prevnar 13, PCV13) 2mo and older 12/30/2015 Pneumococcal polysaccharide 23 valent (Pneumovax 23) 2yo and older 07/27/2012 Td Tetanus diptheria (Tdvax) 7yo and older 12/29/2017 Tdap Tetanus diptheria acell ular pertussis (Boostrix; Adacel) 7yo and older 03/16/2007 Zoster Live 04/26/2013 Surgical History Surgery Date Site/Laterality Comments HERNIA REPAIR PROCEDURE: HISTORICAL HERNIA REPAIR/ING VASECTOMY PROCEDURE: NM VASECTOMY UNI/BI SPX W/POSTOP SEMEN EXAMS COLONOSCOPY 2002 N/A PROCEDURE: HISTORICAL COLONOSCOPY; COMMENT: diverticulosis COLONOSCOPY 2013 N/A PROCEDURE: HISTORICAL COLONOSCOPY; COMMENT: no polyps UPPER GASTROINTESTINAL ENDOSCOPY 09/28/2006 PROCEDURE: NM UPPER GI ENDOSCOPY PERFORMED; COMMENT: normal on PPI rx. Medical History Medical History Date Comments Unspecified hypothyroidism 11/28/2005 DX:Un specified hypothyroidism Bipolar disorder, unspecifie d ([facility] V24, [facility] V28) 11/28/2005 DX:Bipolar disorder, unspec ified ([facility]) Mixed hyperlipidemia 11/28/2005 DX:Mixed hy perlipidemia Diverticulosis [...] reflux 09/28/2006 DX:Esophageal reflux; COMMENT: Normal EGD ..07 on PPI treatment. Back pain 11/26/2010 DX:Back [...] Name Comments Heart attack Father initially at az s 40', smoker, drinker Relation Name Status [...] Mass Index 28.3 01/08/2025 1:26 PM EDT Plan of Treatment Upcoming Encounters Date Type Department Care Team (Late st Contact Info) Description 01/21/2025 9:30 AM EDT Evaluation Outpatient Rehabilitation [address] [phone] Conrad Romero, ANNETTE 06/11/2025 9:45 AM EDT Office Visit Adult Medicine [address] [phone] Magdalena Webb MD [address] [place] [address] Health Maintenance Due Date Last Done Comments Zoster Vaccines (2 of 3) 06/21/2013 04/26/2013 RSV Immunization Adult Patients (1 - 1-dose 75+ series) 2022 Social Influencers of Health Screening 09/03/2022 COVID-19 Vaccine (5 - season) 2024 06/24/2022, 01/22/2022, 07/02/2021, Additional history exists Influenza Vaccine (Season Ended) 2025 07/06/2023, 06/24/2022, 05/10/2021, Additional history exists Depression Screening 01/08/2026 01/08/2025 Falls Risk Assessment 01/08/2026 01/08/2025 DTaP,Tdap,and Td Vaccines (3 - Td or [...] age to complete this topic Meningococcal B Vaccine Aged Out No l onger eligible based on patient's age to complete this topic RSV Immunization Patients Under 20 months Aged Out No longer eligible based on patient's age to complete this topic Varicella Vaccines Aged Out No longer eligible based on patient's age to complete this topic Procedures Procedure Name Priority Date/Time Associated Diagnosis Comments LIPID PANEL Routine 01/05/2023 HM HEPATITIS C SCREENING Routine 10/23/2013 from Last [...] C Screening (10/23/2013) Hepatitis C Screening Abstracted Historical Provider HEALTH MAINTENANCE Final Result from Last 3 Months or Most Recently Relevant to Health Maintenance Insurance [facility] Care Teams Seal Delivery Vehicle Team Technician Relationship Specialty Start Date End Date Magdalena Webb MD [address] [place] [address] PCP - General 09/21/10
== END 2025-01-09 14:00 | disposition home or self-care (01) ==
LOC: HO.HUSH 11:21
PROVIDERS: PCP Internal Medicine; Visit Provider Urology
DX: N40.1 Benign prostatic hyperplasia with lower urinary tract symptoms (principal); R35.1 Nocturia
CPT/HCPCS: 99024

== ENCOUNTER 2025-06-23 08:58 | Outpatient (AMB) | payer OTHER, SELFPAY ==
[2025-06-23 09:02] VITALS: BP 122/84; PULSE 68; O2SAT 93; BMI 29.3
--- NOTE | 2025-06-23 09:02 | MHC.OFFVIS ---
Vital Signs 06/23/25 09:02 Height 5 ft 2 in Weight 160 lb 2 oz BMI 29.3 BP 122/84 Blood Pressure Location Lt brachial Position Sitting Pulse 68 Pulse Source Pulse Oximeter Pulse Oximetry (%) 93 Oxygen Delivery Method Room Air Intake Visit Reasons: 6 mo follow up Intake Note: Patient presents follow up Cognitive/VEL Medication. Compliance in chart(, >=4hrs-12%, Average Usage-1hr 1min, Min EPAP-12cm, Max EPAP-15cm, Med Leaks 53.8, AHI-2.4). Accompanied by: Spouse Allergies albuterol (From Combivent) Allergy (Verified 06/23/25 09:11) Chest Pain ipratropium (From Combivent) Allergy (Verified 06/23/25 09:11) Chest Pain HPI Comments Details: 80 y/o male presents for a f/u of sleep apnea, and cognitive impairment with upper extremity tremors. Yuliya his helps with history. VEL Compliance Report February 2025- May 2025 is reviewed with pt. CPAP use , avg use is 1 hour and 1 min, >4 hours is 12% Pressures EPAP [id number], Leaks 53.8, and AHI 2.4. Compliance Reviewed with pt today and encouraged him to start using the mask more than 4 hours a night daily. He washes his mask, rinses hoses, changes filters and fills reservoir with water. His says he sleeps better when he uses his cpap machine and wakes up feeling more rested. He continues to say mask is uncomfortable pulls it off at night, however he aims for 4 hours a night. He says when he goes to the bathroom the machine stops and restarts and blows forcefully when he is asleep and it wakes him up as it is too loud. His memory is worse, forgetting people's names, and repeating questions, needs more direction. His says he repeats himself at least 17x a day, he watches TV and plays with cat, they stimulate him to do activities, naps through the day due to fatigue. He has been more active goes outside in the back yard now. He likes to play Chess on the computer games, and plays with grand daughter. He is on Exelon patch 13.3 mg/day. No side effects. Denies hallucinations or other abnormal behavior. He has balance and gait difficulty, he is unable to walk greater than 500 feet he starts to lean on the edgar and looses his balance a few times has near falls. He denies headaches, dizziness, vertigo. He has a cane but does not use it. He has tremors bilaterally in hands, tremor of voice and head worse all the time, and mood swings when stressed. His mood is stable though he has chronic depression, BPD and manic episodes. Per Psychiatry he is taking Lamotrigine 150mg BID and Quietapine 50mg, trying tapering [place], however did not tolerate lower doses. He is independent with all his ADLs, helps with dishes and chores in the home, showers, and dresses himself. His diet has improved, and he does have constipation at baseline though miralax improves his symptoms. Mood is okay, chronic depression and BPD with monica, 10+ years. [facility] Medical History Bronchitis Mixed hyperlipidemia Bipolar 1 disorder GERD (gastroesophageal reflux disease) Degenerative arthritis Ventral hernia Back pain PVD (peripheral vascular disease) Raynauds disease MCI (mild cognitive impairment) Sleep apnea BPH (benign prostatic hyperplasia) Pulmonary nodules COPD (chronic obstructive pulmonary disease) Dementia Frequency of urination BPH loc w urin obs/LUTS Thyroid disease Hyperlipidemia Hematuria Surgical History Hx of vasectomy History of esophagogastroduodenoscopy (EGD) History of cataract surgery Hx of tonsillectomy Hx of colonoscopy History of hernia repair Social History Household Members: Spouse Are you a primary home care manager rn to a significant other at home: No Do you presently have visiting nurse or other home services: No Alcohol intake: current Alcohol intake frequency: former alcohol drinker Alcohol type: hard liquor Patient Tobacco Use Status: Former Tobacco user Current occupational status: retired Physical Exam Vital Signs: Last Vital Signs Pulse 68 06/23/25 09:02 BP 122/84 06/23/25 09:02 Pulse Ox 93 06/23/25 09:02 Oxygen Delivery Method Room Air 06/23/25 09:02 BMI result Body Mass Index 29.3 Const General: cooperative, comfortable and no acute distress Nutritional Appearance: average body habitus Orientation/consciousness: oriented to person and oriented to place Limitations: ambulation with cane HEENT Teeth and gingiva: other (mallampti score of 4) Neck Neck: Yes full ROM Resp Effort & Inspection: normal respiratory effort and able to speak in complete sentences Neuro Other: left eye - drooped, UE Bilateral tremors, head and voice tremors, hypophonia, stooped gait, balance and gait difficulty. General: oriented to person, oriented to place, tone normal and moves all extremities Cranial nerves: Yes Normal facial strength present, Yes Ability to bilaterally rotate head present and Yes Ability to bilaterally elevate shoulders present Gait exam (Neuro): Other gait observations present (mild off balance) Motor exam (neuro): 5/5 motor strength present throughout and Normal motor muscle tone present throughout Coordination: gnccby-rq-tiat test normal (over shoots) Psych Appearance: well kempt Speech and movement: Slowed speech present (Psych) and Slowed movement present (Neuro) Affect: Blunted affect present Attitude: cooperative Insight: Limited insight present (Psych) Judgement: Limited judgement present (Psych) Orientation What is the (year) (season) (date) (day) (month)?: day Where are we (state) (county) (town or city) (hospital) (floor)?: state, county, town or city, hospital/clinic and floor Attention & Calculation (CHOOSE ONE) Spell WORLD backwards (DLROW): 3 letters Recall Ask patient to repeat the 3 items from question #3.: object 1, object 2 and object 3 Language Show patient a wristwatch & ask what it is. Repeat for pencil.: watch and pencil Ask the patient to repeat the phrase 'No ifs, ands, or buts' after you.: correct Ask the patient to 'take a piece of paper with their right hand' 'fold paper in half' 'place paper on floor': take paper in right hand, fold paper in half and place paper on floor Print the sentence 'CLOSE YOUR EYES' on a piece. If patient actually closes eyes then score.: followed written direction Score Score: 19 Results Reviewed Results Reviewed: VEL Compliance Report February 2025- May 2025 is reviewed with pt. CPAP use 23/90 days, avg use is 1 hour and 1 min, >4 hours is 12% Pressures EPAP [id number], Leaks 53.8, and AHI 2.4. Assessment & Plan Assessment & Plan (1) Obstructive sleep apnea: Code(s): G47.33 - Obstructive sleep apnea (adult) (pediatric) Category: Medical (2) Cognitive impairment: Code(s): R41.89 - Other symptoms and signs involving cognitive functions and awareness Category: Medical (3) Balance disorder: Code(s): R26.89 - Other abnormalities of gait and mobility Category: Medical Plan Chronic Fatigue due to sleep difficulties, he is on bipap use and compliance is reviewed with pt. and >4 hours per night. Will evaluate his VEL with in lab psg and r/o PLMD, pt's thinks better to complete the HST in his own natural environment. PT for Gait and Balance Difficulties, continue. Cognitive decline Will continue him on Memantine 28mg PO daily. Cognitive decline Exelon patch 13.3mg daily, he is on the max dose. MMSE is 19/30, moderate dementia. Labs to complete F/U in 4 months Orders: Orders RT home sleep study 06/23/25 G47.19 - Other hypersomnia Complete Blood Count no Diff Today G47.19 - Other hypersomnia, R41.89 - Other symptoms and signs involving cognitive functions and awareness Homocysteine Today G47.19 - Other hypersomnia, G47.9 - Sleep disorder, unspecified, R41.89 - Other symptoms and signs involving cognitive functions and awareness, R53.83 - Other fatigue Vitamin B12 and Folate Today G47.19 - Other hypersomnia, R41.89 - Other symptoms and signs involving cognitive functions and awareness Vitamin B1 Today G47.19 - Other hypersomnia, R41.89 - Other symptoms and signs involving cognitive functions and awareness TSH reflex Free T4 Today G47.19 - Other hypersomnia, R41.89 - Other symptoms and signs involving cognitive functions and awareness Comprehensive Met. Panel Today G47.19 - Other hypersomnia, R41.89 - Other symptoms and signs involving cognitive functions and awareness Ferritin Today G47.19 - Other hypersomnia, R41.89 - Other symptoms and signs involving cognitive functions and awareness Methylmalonic Acid Today G47.19 - Other hypersomnia, G47.9 - Sleep disorder, unspecified, R41.89 - Other symptoms and signs involving cognitive functions and awareness, R53.83 - Other fatigue Vitamin D 25-OH Total Today G47.19 - Other hypersomnia, R41.89 - Other symptoms and signs involving cognitive functions and awareness Vitamin B6 Today G47.19 - Other hypersomnia, R41.89 - Other symptoms and signs involving cognitive functions and awareness Hemoglobin A1c Today G47.19 - Other hypersomnia, R41.89 - Other symptoms and signs involving cognitive functions and awareness Patient Instructions: Sleep Hygiene provided: set a scheduled bedtime and wake time to help regulate the circadian rhythm and balance the release of pituitary hormones. Sleep in a dark room, temperatures below 68 degrees, and no devices n bed. Limit caffeinated products 6 hours prior to bed, and limit fluids 2-4 hours prior to bed. Gentle night yoga, diffusing essential oils, and playing soft music can be relaxing. Coding Level of Care Code Est Pt Level 4 (46760) Diagnoses Obstructive sleep apnea G47.33 Cognitive impairment R41.89 Balance disorder R26.89
--- OUTSIDE RECORDS SUMMARY | 2025-06-23 09:30 | XMS_ITS | Clinical Summary ---
Author Organization [address] [facility] Address [address] [place] [address] Phone Care Team Providers Care Sight Effects Specialist Name Role Phone Magdalena Webb MD Primary Care Provider [phone] Allergies Active Allergy Reactions Criticality Noted Date [...] daily. 3 inhalers & 3 refills 4 Active yfupi-ut-4-dha-ep l-dnzxqws-dmu (MegaRed [place]-3 Krill Oil) [id number] mg capsule Take 500 mg by mouth [...] 1 Tablet by mouth daily. EDU[facility] provider fills meds Active rivastigmine (EXELON) 13.3 mg/24 hour Inject 13.3 mg into the skin daily. Neurologist, Dr. Rojas fills meds Active tamsulosin (FLOMAX) 0.4 mg 24 hr capsule Take 1 Capsule by mouth. Urologist, Sina fills meds Active atorvastatin (LIPITOR) 10 mg tablet Take 1 tablet (10 mg total) by mouth 1 (one) time each day. 90 tablet 1 5 Active levothyroxine (SYNTHROID, LEVOTHROID) 100 mcg tablet TAKE 1 TABLET BY MOUTH 1 TIME EACH DAY. 90 tablet 5 Active Active Problems Problem Noted Date Diagnosed Date [place] 06/11/2025 Peripheral arterial occlusive disease ([facility] V 24) 06/11/2025 Abnormal chest x-ray 07/10/2024 Cataract 07/10/2024 Overview (08/29/2024): Surgery in 2022, Cataract removed from both eyes Chronic obstructive pulmonar y disease ([facility] V24, CMS/HCC V28) 07/10/2024 Pulmonary nodules 10/30/2023 Benign prostatic hyperplasia without lower urinary tract symptoms 01/09/2023 Overview (08/29/2024): follows with Dr. Andino Central sleep apnea 01/14/2019 Overview (08/29/2024): cpap treatment through neurology - Dr Gonzalez [facility] Polysomnogram PAP treatment study. [...] See rheumatology note 03/2013 Peripheral vascular disease ([facility] V24) 2012 Overview (08/29/2024): Right leg pain: moderate fem pop disease on testing at [facility] vascular (2009) Back pain 11/26/2010 Overview (08/29/2024): [...] Bipolar 1 disorder with mode rate monica ([facility] V24, [facility] V28) 11/28/2005 Hypothyroidism 11/28/2005 Mixed hyperlipidemia 11/28/2005 Encounters Date Type Department Care Team Description 06/13/2025 Telephone Adult Medicine [facility] [address], [place] [phone] Kesha Thomas NP 06/11/2025 9:45 AM EDT Office Visit Adult Medicine [address] [phone] Magdalena Webb MD MCI (mild cognitive impairment) (Primary Dx); Hypothyroidism, unspecified type; Tremor; Bipolar 1 disorder with moderate monica (CMS/HCC V24, CMS/HCC V28); Mixed hyperlipidemia; Benign prostatic hyperplasia without lower urinary tract symptoms; Need for prophylactic vaccination and inoculation against influenza 04/21/2025 9:24 AM EDT - 04/21/2025 11:59 PM EDT Hospital Encounter CT Scan - [address] [phone] Lung nodules Discharge Disposition: Home or Self Care from Last 3 Months Immunizations Immunization Administration Dates Next Due H1N1 Inj Preservative Free 10/07/2009 Influenza Quadravalent, MDCK , 0.5ml, preservative free (Flucelvax) 6mo and older 07/19/2019 Influenza trivalent, 0.5mL ( Fluad) 65yo and older 06/11/2025,07/06/2023,06/24/2022,05/10,06/14/2020,07/09/2018,07/14/2017 ,06/15/2015 Influenza trivalent, 0.5mL, preservative free (Fluarix; FluLaval; [...] REPAIR PROCEDURE: HISTORICAL HERNIA REPAIR/ING VASECTOMY PROCEDURE: NC VASECTOMY UNI/BI SPX W/POSTOP SEMEN EXAMS COLONOSCOPY 2002 N/A PROCEDURE: HISTORICAL COLONOSCOPY; COMMENT: diverticulosis COLONOSCOPY 2013 N/A PROCEDURE: HISTORICAL COLONOSCOPY; COMMENT: no polyps UPPER GASTROINTESTINAL ENDOSCOPY 09/28/2006 PROCEDURE: NC UPPER GI ENDOSCOPY PERFORMED; COMMENT: normal on PPI rx. Medical History Medical History Date Comments Unspecified hypothyroidism 11/28/2005 DX:Un specified hypothyroidism Bipolar disorder, unspecifie d ([facility] V24, [facility] V28) 11/28/2005 DX:Bipolar disorder, unspec ified ([facility]) Mixed hyperlipidemia 11/28/2005 DX:Mixed hy perlipidemia Diverticulosis [...] reflux 09/28/2006 DX:Esophageal reflux; COMMENT: Normal EGD 1.4.07 on PPI treatment. Back pain 11/26/2010 DX:Back [...] Name Comments Heart attack Father initially at ri s 40', smoker, drinker Relation Name Status Comments Father Social History Tobacco Use Types Packs/Day Years Used Date Smoking Tobacco: Former Cigarettes Q uit: 07/25/2011 Passive Smoke Exposure: Past Smokeless Tobacco: Never Tobacco Cessation:Counseling Given: Not Answered Alcohol Use Standard Drinks/Week Comments Yes 0 (1 standard drink = 0.6 oz pur e alcohol) Housing Instability Answer Date Recorde d Are you worried that in the next 2 months you may not have stable housing? No 06/11/2025 Food Access & Nutrition Answer Date Rec orded Do you have access to a vari ety of food including fruits and vegetables? Yes 06/11/2025 Access to Healthcare Answer Date Record ed Within the last 3 months, ho w many times did you visit the emergency department for your medical care? 0 06/11/2025 Health Literacy Answer Date Recorded How often do you need to hav e someone help you when you read instructions, pamphlets, or other written material from your doctor or pharmacy? Never 06/11/2025 Caregiver: How often do you need to have someone help you when you read instructions, pamphlets, or other written material from your doctor or pharmacy? Not on file 06/11/2025 Financial Risk Answer Date Recorded How hard is it for you to pa y for the very basics like food, housing, medical care, and air conditioning / heating? Not very hard 06/11/2025 Transportation Answer Date Recorded Has the lack of transportati on kept you from meetings, work, or from getting things needed for daily living? No Has the lack of transportati on kept you from medical appointments or from getting medications? No 06/11/2025 Social Isolation Answer Date Recorded How often do you feel lonely or isolated from th ose around you? Never 06/11/2025 Food Risk Answer Date Recorded Within the past 12 months we worried whether our food would run out before we got money to buy more. Never true 06/11/2025 Within the past 12 months th e food we bought just didn't last and we didn't have money to get more. Never true 06/11/2025 Dependent Care Answer Date Recorded Do you need help finding or paying for care for your loved ones. For example, child welfare caseworker or elderly care for an older adult? No 06/11/2025 Education Answer Date Recorded Do you think completing more education or training, like finishing a GED, going to college, or learning a trade, would be helpful for you? No 06/11/2025 Employment and Income Answer Date Recor ded During the last four weeks, have you been actively looking for work? No 06/11/2025 Living Situation Answer Date Recorded What is your living situation? Unrecognized valu e 06/11/2025 Sex and Gender Information Value Date Recorded Sex Assigned at Not on file Legal Sex Male 3:54 PM EST Gender Identity Not on file Sexual Orientation Not on file Obstetrics History Last Filed Vital Signs Vital Sign Reading Time Taken Comments Blood Pressure 135/75 06/11/2025 9:42 AM EDT Pulse 66 06/11/2025 9:39 AM EDT Temperature 35.8 C (96.4 F) 06/11/2025 9:39 AM EDT Respiratory Rate 15 06/11/2025 9:39 AM EDT Oxygen Saturation 98% 06/11/2025 9:39 AM EDT Inhaled Oxygen Concentration - - Weight 67.8 kg (149 lb 6.4 oz) 06/11/2025 9:39 A M EDT Height 160 cm (5' 3 ) 06/11/2025 9:39 AM EDT Body Mass Index 26.47 06/11/2025 9:39 AM EDT Plan of Treatment Upcoming Encounters Date Type Department Care Team (Late st Contact Info) Description 11/17/2025 1:00 PM EST Office Visit Adult Medicine [facility] [place] [address] [place] [phone] Magdalena Webb MD [address] [place] [address] Health Maintenance Due Date Last Done Comments Zoster Vaccines (2 of 3) 06/21/2013 04/26/2013 RSV Immunization Adult Patients (1 - 1-dose 75+ series) 2022 COVID-19 Vaccine ( season) 2025 06/24/2022, 01/22/2022, 07/02/2021, Additional history exists Falls Risk Assessment 01/08/2026 01/08/2025 Social Influencers of Health Screening 06/11/2026 06/11/2025 DTaP,Tdap,and Td Vaccines (3 - Td or Tdap) 12/30/2027 12/29/2017, 03/16/2007 Cholesterol Screening (Lipid Panel) 06/13/2030 06/13/2025, 01/05/2023 Hepatitis C Screening Completed 10/23/2013 Pneumococcal Vaccine: 50+ Years Completed 12/30/2015, 07/27/2012 Depression Screening Completed 01/08/2025 Influenza Vaccine Completed 06/11/2025, , 06/24/2022, Additional history exists HIB Vaccines Aged Out No longer eligi [...] on patient's age to complete this topic Goals Goal Patient Goal Type Associated Problems Recent Progress Patient-Stated? Author STG's 6 visits General Yes Conrad Romero, PT Note: Pt will report an 80% or better decrease in reports of dizziness when rolling or changing positions. Procedures Procedure Name Priority Date/Time Associated Diagnosis Comments COMPREHENSIVE METABOLIC PANEL Routine 06/13/2025 10:39 AM EDT MCI (mild cognitive impairment) Mixed hyperlipidemia Hypothyroidism, unspecified type Benign prostatic hyperplasia without lower urinary tract symptoms Chronic obstructive pulmonary disease, unspecified COPD type ([facility]/HCC V24, [facility]/HCC V28) Encounter for screening for cardiovascular disorders Encounter for screening for malignant neoplasm of prostate LIPID PANEL WITH REFLEX TO DIRECT LDL Routine 06/13/2025 10:39 AM EDT Encounter for screening for cardiovascular disorders THYROID STIMULATING HORMONE WITH REFLEX TO FREE T4 AND FREE T3 Routine 06/13/2025 10:39 AM EDT MCI (mild cognitive impairment) Mixed hyperlipidemia Hypothyroidism, unspecified type Benign prostatic hyperplasia without lower urinary tract symptoms Chronic obstructive pulmonary disease, unspecified COPD type (CMS/HCC V24, CMS/HCC V28) Encounter for screening for cardiovascular disorders Encounter for screening for malignant neoplasm of prostate PROSTATE SPECIFIC ANTIGEN SCREEN Routine 06/13/2025 10:39 AM EDT Encounter for screening for malignant neoplasm of prostate CBC WITH AUTO DIFFERENTIAL Routine 06/13/2025 10:33 AM EDT MCI (mild cognitive impairment) Mixed hyperlipidemia Hypothyroidism, unspecified type Benign prostatic hyperplasia without lower urinary tract symptoms Chronic obstructive pulmonary disease, unspecified COPD type (CMS/HCC V24, CMS/HCC V28) Encounter for screening for cardiovascular disorders Encounter for screening for malignant neoplasm of prostate CBC AND DIFFERENTIAL Routine 06/13/2025 10:33 AM EDT MCI (mild cognitive impairment) Mixed hyperlipidemia Hypothyroidism, unspecified type Benign prostatic hyperplasia without lower urinary tract symptoms Chronic obstructive pulmonary disease, unspecified COPD type (CMS/HCC V24, CMS/HCC V28) Encounter for screening for cardiovascular disorders Encounter for screening for malignant neoplasm of prostate CT CHEST WO CONTRAST Routine 04/21/2025 9:37 AM EDT Lung nodules HEPATITIS C SCREENING Routine 10/23/2013 from Last 3 Months or Most Recently Relevant to Health Maintenance Results * Prostate specific antigen screen (06/13/2025 10:39 AM EDT) PSA 1.96 0.00 - 4.00 ng/mL LAB CHEMISTRY METHOD 06/13/2025 2:03 PM EDT [facility] Blood Venous blood specimen / Unknown Venipuncture / Unknown 06/13/2025 10:39 AM EDT 06/13/2025 10:39 AM EDT [facility] - 06/13/2025 2:03 PM EDT The Siemens Advia StyleFeederaur Chemiluminescent Immunoassay is used. Results obtained with different assay methods or kits cannot be used interchangeably. Results cannot be interpreted as absolute evidence of the presence or absence of malignant disease. Kesha Thomas LAB BLOOD ORDERABLES Final R esult Performing Organization Address [facility]/ZIP Co de Phone Number [facility] [address] [place] [address], [place] [phone] * Thyroid stimulating hormone with reflex to free t4 and free t3 (06/13/2025 10:39 AM EDT) Pathologist [facility] TSH 1.73 0.40 - 4.00 mcIU/mL LAB CHEMISTRY METHOD 06/13/2025 2:31 PM EDT [facility] Blood Venous blood specimen / Unknown Venipuncture / Unknown 06/13/2025 10:39 AM EDT 06/13/2025 10:39 AM EDT Kesha Thomas LAB BLOOD ORDERABLES Final R esult Performing Organization Address [facility] [[email or web address]] Co de Phone Number [facility] [address] [place] [address], [place] [phone] * (ABNORMAL) Lipid panel with reflex to direct LDL (06/13/2025 10:39 AM EDT) Cholesterol 202(H) 0 - 200 mg/dL LAB CHEMISTRY METHOD 06/13/2025 1:19 PM EDT [facility] Triglycerides 138 0 - 150 mg/dL LAB CHEMISTRY METHOD 06/13/2025 1:19 PM EDT [facility] HDL 61 >=40 mg/dL LAB CHEMISTRY METHOD 06/13/2025 1:19 PM EDT [facility] LDL Calculated 113(H) 0 - 100 mg/dL LAB CHEMISTRY METHOD 06/13/2025 1:19 PM EDT [facility] Comment:Estimated LDL Calcul ated using equation: Total cholesterol - HDL cholesterol - (Triglycerides/5) VLDL Cholesterol Samuel 27.6 mg/dL LAB CHEMISTRY METHOD 06/13/2025 1:19 PM EDT [facility] Non HDL Chol. (LDL+VLDL) 141 <145 mg/dL LAB CHEMISTRY METHOD 06/13/2025 1:19 PM EDT [facility] Chol/HDL Ratio 3.3 0.0 - 4.4 LAB CHEMISTRY METHOD 06/13/2025 1:19 PM T [facility] Blood Venous blood specimen / Unknown Venipuncture / Unknown 06/13/2025 10:39 AM EDT 06/13/2025 10:39 AM EDT us Kesha Thomas NP LAB BLOOD ORDERABLES Final R esult [facility] [address] [place] [address], [place] [phone] * (ABNORMAL) Comprehensive metabolic panel (06/13/2025 10:39 AM EDT) Sodium 138 133 - 145 mmol/L LAB CHEMISTRY METHOD 06/13/2025 1:13 PM [facility] Potassium 3.8 3.5 - 5.5 mmol/L LAB CHEMISTRY METHOD 06/13/2025 1:13 PM [facility] Chloride 106 96 - 110 mmol/L LAB CHEMISTRY METHOD 06/13/2025 1:13 PM [facility] CO2 26 21 - 32 mmol/L LAB CHEMISTRY METHOD 06/13/2025 1:13 PM [facility] Anion Gap 6 3 - 11 LAB CHEMISTRY METHOD 06/13/2025 1:13 PM [facility] Glucose 98 70 - 100 mg/dL LAB CHEMISTRY METHOD 06/13/2025 1:13 PM [facility] BUN 18 5 - 25 mg/dL LAB CHEMISTRY METHOD 06/13/2025 1:13 PM [facility] Creatinine 1.05 0.70 - 1.30 mg/dL LAB CHEMISTRY METHOD 06/13/2025 1:13 PM T [facility] eGFR 73 >=60 mL/min/1. 73m2 LAB CHEMISTRY METHOD 06/13/2025 1:13 PM T [facility] Comment:Calculation based on the Chronic Kidney Disease Epidemiology Collaboration (CKD-EPI) equation refit without adjustment for race. BUN/Creatinine Ratio 17.1 LAB CHEMISTRY METHOD 06/13/2025 1:13 PM T [facility] Calcium 9.9 8.5 - 10.5 mg/dL LAB CHEMISTRY METHOD 06/13/2025 1:13 PM [facility] AST (SGOT) 24 10 - 42 unit/L LAB CHEMISTRY METHOD 06/13/2025 1:13 PM [facility] ALT (SGPT) 53 10 - 60 unit/L LAB CHEMISTRY METHOD 06/13/2025 1:13 PM [facility] Alkaline Phosphatase 135(H) 42 - 121 unit/L LAB CHEMISTRY METHOD 06/13/2025 1:13 PM [facility] Total Protein 6.9 6.0 - 8.0 g/dL LAB CHEMISTRY METHOD 06/13/2025 1:13 PM [facility] Albumin 3.6 3.2 - 5.0 g/dL LAB CHEMISTRY METHOD 06/13/2025 1:13 PM [facility] Total Bilirubin 0.5 0.0 - 1.4 mg/dL LAB CHEMISTRY METHOD 06/13/2025 1:13 PM [facility] Blood Venous blood specimen / Unknown Venipuncture / Unknown 06/13/2025 10:39 AM EDT 06/13/2025 10:39 AM EDT us Kesha Thomas NP LAB BLOOD ORDERABLES Final R esult [facility] [address] [place] [address], * CBC auto differential (06/13/2025 10:33 AM EDT) [facility] Signature WBC 6.9 4.8 - 10.8 K/mcL LAB HEMETOLOGY METHOD 06/13/2025 12:20 PM EDT [facility] RBC 5.50 4.50 - 5.50 M/mcL LAB HEMETOLOGY METHOD 06/13/2025 12:20 PM EDT [facility] Hemoglobin 15.9 13.5 - 17.5 g/dL LAB HEMETOLOGY METHOD 06/13/2025 12:20 PM EDT [facility] Hematocrit 49.7 42.0 - 54.0 % LAB HEMETOLOGY METHOD 06/13/2025 12:20 PM EDT [facility] MCV 90.7 79.0 - 98.0 FL LAB HEMETOLOGY METHOD 06/13/2025 12:20 PM EDT [facility] MCH 29.0 27.0 - 32.0 pcg LAB HEMETOLOGY METHOD 06/13/2025 12:20 PM EDT [facility] MCHC 32.0 32.0 - 37.0 g/dL LAB HEMETOLOGY METHOD 06/13/2025 12:20 PM EDT [facility] RDW 13.1 11.0 - 15.0 % LAB HEMETOLOGY METHOD 06/13/2025 12:20 PM EDT [facility] Platelets 251 130 - 400 K/mcL LAB HEMETOLOGY METHOD 06/13/2025 12:20 PM EDT [facility] MPV 10.3 7.0 - 11.0 FL LAB HEMETOLOGY METHOD 06/13/2025 12:20 PM EDT [facility] NRBC 0.0 <1.0 % LAB HEMETOLOGY METHOD 06/13/2025 12:20 PM EDT [facility] NRBC Absolute 0.00 <0.10 K/mcL LAB [facility]EMETOLOGY [facility]25 [facility] Neutrophils Relative 63.4 % LAB HEMETOLOGY METHOD 06/13/2025 12:20 PM [facility] Lymphocytes Relative 23.1 % LAB HEMETOLOGY METHOD [facility]/13[facility]2025 [facility] Monocytes Relative 10.2 % LAB HEMETOLOGY METHOD 06/13[facility]2025 12:[facility] Eosinophils Relative 2.6 % LAB HEMETOLOGY METHOD 06/13/2025 12:20 PM [facility] Basophils Relative 0.4 % LAB HEMETOLOGY METHOD 06/13/2025 12:20 PM [facility] Immature Granulocytes Relative 0.3 % LAB HEMETOLOGY METHOD 06/13/2025 12:20 PM [facility] Neutrophils Absolute 4.36 1.50 - 7.00 K/mcL LAB HEMETOLOGY METHOD 06/13/2025 12:20 PM [facility] Lymphocytes Absolute 1.59 1.00 - 5.00 K/mcL LAB HEMETOLOGY METHOD 06/13/2025 12:20 PM [facility] Monocytes Absolute 0.70 0.20 - 1.00 K/mcL LAB HEMETOLOGY METHOD 06/13/2025 12:20 PM [facility] Eosinophils Absolute 0.18 0.00 - 0.50 K/mcL LAB HEMETOLOGY METHOD 06/13/2025 12:20 PM [facility] Basophils Absolute 0.03 0.00 - 0.20 K/mcL LAB HEMETOLOGY METHOD 06/13/2025 12:20 PM [facility] Immature Granulocytes Absolute 0.02 0.00 - 0.03 K/mcL LAB HEMETOLOGY METHOD 06/13/2025 12:20 PM EDT [facility] Blood Venous blood specimen / Unknown 06/13/2025 10:33 AM EDT 06/13/2025 10:33 AM EDT us Kesha Thomas [facility] LAB BLOOD ORDERABLES Final R esult [facility] ([facility] [address] [place] [address], [place] [phone] * CT Chest wo Contrast (04/21/2025 9:37 AM EDT) Anatomical Region Laterality Modality Body Computed Tomogra phy 04/22/2025 9:59 AM EDT Impressions 04/22/2025 8:12 PM EDT Stable small bilateral calcified pulmonary nodules. No new nodule detected. POS - [id number] -------- FINAL REPORT -------- Dictated By: Leia Ortez Dictated Date: 04/22/2025 09:59 ET Assigned Physician: Leia Ortez Reviewed and Electronically Signed By: Leia Oretz Signed Date: 04/22/2025 20:12 ET Workstation ID: [id number] Transcribed By: Self Edit Transcribed Date: 04/22/2025 10:16 ET Narrative 04/22/2025 8:12 PM EDT EXAM: Chest CT HISTORY: Follow-up pulmonary nodules. Family history of lung cancer. History of previous tobacco use. COMPARISON: 04/18/2024 and 10/16/2023 TECHNIQUE: Multidetector CT is obtained from lung apex to base without IV contrast. Sagittal and coronal reformatted images obtained. Automated exposure control utilized. TOTAL CTDIvol: 9.89 mGy FINDINGS: Lungs/pleura: Numerous bilateral calcified nodules measuring up to 3 mm are stable. No new nodule detected. No new mass or infiltrate. Stable bilateral scarring which is most prominent in the subpleural right lower lobe. Trachea and central airways are patent. No pleural effusions. Lymph nodes: Sensitivity for lymphadenopathy is limited without IV contrast. Subcentimeter mediastinal lymph nodes. No definite enlarged hilar lymph nodes. Cardiovascular: Heart is not enlarged. No pericardial effusion. Coronary calcifications again noted. Scattered atherosclerotic calcifications in the aorta and great vessels. No thoracic aortic aneurysm. Soft tissues: Thyroid gland is not enlarged. No esophageal abnormality. Upper abdomen: No mass in the imaged adrenal glands. Very small hiatal hernia. Bones: Multilevel degenerative changes in the spine. Procedure Note Leia Ortez MD - 04/22/2025 EXAM: Chest CT HISTORY: Follow-up pulmonary nodules. Family history of lung cancer.History of previous tobacco use. COMPARISON: 04/18/2024 and 10/16/2023 TECHNIQUE: Multidetector CT is obtained from lung apex to base without IVcontrast. Sagittal and coronal reformatted images obtained. Automatedexposure control utilized. TOTAL CTDIvol: 9.89 mGy FINDINGS: Lungs/pleura: Numerous bilateral calcified nodules measuring up to 3 mmare stable. No new nodule detected. No new mass or infiltrate. Stablebilateral scarring which is most prominent in the subpleural right lowerlobe. Trachea and central airways are patent. No pleural effusions. Lymph nodes: Sensitivity for lymphadenopathy is limited without IVcontrast. Subcentimeter mediastinal lymph nodes. No definite enlargedhilar lymph nodes. Cardiovascular: Heart is not enlarged. No pericardial effusion. Coronarycalcifications again noted. Scattered atherosclerotic calcifications inthe aorta and great vessels. No thoracic aortic aneurysm. Soft tissues: Thyroid gland is not enlarged. No esophageal abnormality. Upper abdomen: No mass in the imaged adrenal glands. Very small hiatalhernia. Bones: Multilevel degenerative changes in the spine. IMPRESSION: Stable small bilateral calcified pulmonary nodules. No new noduledetected. POS - [id number] -------- FINAL REPORT -------- Dictated By: Leia Ortez Dictated Date: 04/22/2025 09:59 ET Assigned Physician: Leia Ortez Reviewed and Electronically Signed By: Leia Ortez Signed Date: 04/22/2025 20:12 ET Workstation ID: [id number] Transcribed By: Self Edit Transcribed Date: 04/22/2025 10:16 ET Bhavani Platt MD IMG CT PROCEDURES Final Result * Hepatitis C Screening (10/23/2013) Hepatitis C Screening Abstracted Historical Provider HEALTH MAINTENANCE Final Result from Last 3 Months or Most Recently Relevant to Health Maintenance Insurance [facility] Care Teams Sight Effects Specialist Relationship Specialty Start Date End Date Magdalena Webb MD [address] [place] [address] PCP - General 09/21/10
--- OUTSIDE RECORDS SUMMARY | 2025-06-23 09:30 | XMS_ITS | Encounter Summary ---
Author Organization [facility] Address [address] [place] [address] Care Team Providers Care Transit Survey Worker Name Role Phone Magdalena Webb MD Primary Care Provider [phone] Reason for Visit * Reason Onset Date Comments Lab Results 06/13/2025 LFT slightly cayetano vated Encounter Details Date Type Department Care Team ([facility] st Contact Info) Description 06/13/2025 Telephone Adult Medicine [facility] [address] [place] [phone] Kesha Thomas, SKILLED NURSING CASE MANAGER [address], [place] Social History Tobacco Use Types Packs/Day Years [...] Record ed Within the last 3 months, clarence michael many times did you visit the emergency [...] for your loved ones. For example, child psychology teacher or elderly care for an older adult? [...] on file documented as of this encounter Progress Notes * Yesenia Ojeda MA - 06/18/2025 10:46 AM EDT Message left , see my chart for results if unable to acces please contact office * Kesha Thomas NP - 06/13/2025 3:05 PM EDT I reviewed patient recent results. Electrolytes and Kidney function is normal. However, one of yourliver function test is slightly elevated. No acute concerns noted. However, I would like patient to repeat in one to two months. Lab ordered Please call patient and inform of above message. Thank documented in this encounter Plan of Treatment Upcoming Encounters Date Type Department Care Team (Late st Contact Info) Description 11/17/2025 1:00 PM EST Office Visit Adult Medicine [facility] [place] [place] [address] [place] [address] Magdalena Webb MD [address] [place] [address] Scheduled Orders Name Type Priority Associated Diagnoses Orde r Schedule Hepatic function panel Lab Routine Elevated LFTs 1 Occurrences starting 06/13/2025 until 06/13/2026 documented as of this encounter Goals Goal Patient Goal Type Associated Problems Recent Progress Patient-Stated? Author STG's 6 visits General Yes Conrad Romero, PT Note: Pt will report an 80% or better decrease in reports of dizziness when rolling or changing positions. documented as of this encounter Visit Diagnoses Diagnosis Elevated LFTs- Primary Other abnormal blood chemistry documented in this encounter Additional Health Concerns Assessment Noted Time PHQ-9 Depression Total Score: 0 01/09/20 25 1:00 PM EDT documented as of this encounter Care Teams Transit Survey Worker Relationship Specialty Start Date End Date Magdalena Webb MD [address] [place] [address] PCP - General 09/21/10 documented as of this encounter
--- OUTSIDE RECORDS SUMMARY | 2025-06-23 09:30 | XMS_ITS ---
Author Name [facility] Organization Unknown Care Team Organization Name Specialty Phone Email Start Date End Da te [facility] 08/02/2022 05/13/2024
== END 2025-06-23 10:11 | disposition home or self-care (01) ==
LOC: HO.HSMS 08:58
PROVIDERS: PCP Internal Medicine; Visit Provider Physician Assistant Medical
DX: G47.33 Obstructive sleep apnea (adult) (pediatric) (principal); R41.89 Other symptoms and signs involving cognitive functions and awareness; R26.89 Other abnormalities of gait and mobility
CPT/HCPCS: 99214

== ENCOUNTER 2025-07-11 10:07 | Outpatient (AMB) | payer OTHER, SELFPAY ==
--- NOTE | 2025-07-11 10:20 | A.OFFVIS_ITS ---
Intake Visit Reasons: 6M follow up/ PVR Intake Note: Patient is present for 6mo follow up Urology Medication:FINASTERIDE,vitC Blood Thinner:NONE today's pvr: 0mls Manager Provider Relations Required: No Accompanied by: Spouse Allergies albuterol (From Combivent) Allergy (Verified 07/11/25 10:21) Chest Pain ipratropium (From Combivent) Allergy (Verified 07/11/25 10:21) Chest Pain HPI Comments Details: Genaro is a pleasant male. He is a patient of Dr. Webb. He is seen for the following urologic conditions - lower urinary tract symptoms Six-month following GreenLight 0 cc in bladder . Finasteride Six-month follow-up check PSA He also has progressive memory related issues Lower urinary tract symptoms Initial symptoms increased weakness of stream and getting up 2-3 times per night Cystoscopy - prior cystoscopy with trilobar hypertrophy during cytology evaluation Current therapy tamsulosin and finasteride PSA 09/14 2.11 Therapeutic plan continue combination therapy GreenLight laser prostate 01/17 PFSH Medical History Bronchitis Mixed hyperlipidemia Bipolar 1 disorder GERD (gastroesophageal reflux disease) Degenerative arthritis Ventral hernia Back pain PVD (peripheral vascular disease) Raynauds disease MCI (mild cognitive impairment) Sleep apnea BPH (benign prostatic hyperplasia) Pulmonary nodules COPD (chronic obstructive pulmonary disease) Dementia Frequency of urination BPH loc w urin obs/LUTS Thyroid disease Hyperlipidemia Hematuria Surgical History Hx of vasectomy History of esophagogastroduodenoscopy (EGD) History of cataract surgery Hx of tonsillectomy Hx of colonoscopy History of hernia repair Social History Household Members: Spouse Are you a primary rental boats caretaker to a significant other at home: No Do you presently have visiting nurse or other home services: No Alcohol intake: current Alcohol intake frequency: former alcohol drinker Alcohol type: hard liquor Patient Tobacco Use Status: Former Tobacco user 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 Procedures Post Void Residual Post Residual Void Post Void Residual (PVR): 0 [id number] Void Residual by ultrasound Results AMB Urinalysis, Automated UA Leukoctes 15 Hellen/uL Last Edit by RONN Reyes on 07/11/25 12:08 UA Nitrite Last Edit by Noelle Kauffman, [facility] on 07/11/25 12:08 UA Urobilinogen 0.2 mg/dL Last Edit by Noelle Kauffman, [facility] on 07/11/25 12:0 8 UA Protein 15 mg/dL Last Edit by Noelle Kauffman, [facility] on 07/11/25 12:08 UA pH 5.5 Last Edit by Noelle Kauffman, [facility] on 07/11/25 12:08 UA Blood 0 Jorge Alberto/uL Last Edit by Noelle Kauffman, [facility] on 07/11/25 12:08 UA Specific [place] 1.025 Last Edit by Noelle Kauffman, [facility] on 07/11/25 12: 08 UA Ketone Last Edit by Noelle Kauffman, [facility] on 07/11/25 12:08 UA Bilirubin 1 mg/dL Last Edit by Noelle Kauffman, [facility] on 07/11/25 12:08 UA Glucose 0 mg/dL Last Edit by Noelle Kauffman [facility] on 07/11/25 12:08 Assessment & Plan Assessment & Plan Orders: Orders Prostate Specific Antigen 6 Months N40.1 - Benign prostatic hyperplasia with lower urinary tract symptoms AMB Urinalysis Automated Today Z13.9 - Encounter for screening, unspecified AMB Post Void Residual by ultrasound Today N40.1 - Benign prostatic hyperplasia with lower urinary tract symptoms Medications: Discontinued finasteride Discontinued Reason: Patient Completed Course 5 mg PO DAILY 90 days 90 tabs 3RF N13.8 - Other obstructive and reflux uropathy, N40.1 - Benign prostatic hyperplasia with lower urinary tract symptoms, R33.9 - Retention of urine, unspecified Coding CPT Codes Post Residual Void - PVR CPT Code: [id number] Void Residual by ultrasound ([id number])
--- OUTSIDE RECORDS SUMMARY | 2025-07-11 11:54 | XMS_ITS | Clinical Summary ---
Author Organization [address] [facility] Address [address] [place] [address] Phone Care Team Providers Care Supervisor Transferring And Boxing Name Role Phone Magdalena Webb MD Primary Care Provider [phone] Allergies Active Allergy Reactions Criticality Noted Date [...] 3 inhalers & 3 refills 05/23/20 24 Active uhztn-ie-5-dha-e ya-oxkrfkc-loo (MegaRed [place]-3 Krill Oil) [phone] mg capsule Take 500 mg by mouth daily. Buy OTC Active lamoTRIgine (LaMICtal) 150 mg tablet Take 1 Tablet by mouth 2 times daily. [facility] provider fills meds Active memantine (NAMENDA) 10 mg tablet Take 1 Tablet by mouth daily. Neurologist, Dr. Rojas fills meds Active mv-min/folic/K1/ lycopen/lutein (MEN 50 PLUS MULTIVITAMIN ORAL) Take 1 Tablet by mouth daily. Take 1 Tab by mouth daily. OTC Active omeprazole (PriLOSEC) [address] capsule Take 1 Capsule by mouth daily. Take 1 capsule by mouth daily. OTC Active QUEtiapine (SEROquel) 50 mg tablet Take 1 Tablet by mouth daily. EDUARD Tucker [facility] provider fills meds Active rivastigmine (EXELON) 13.3 mg/24 hour Inject 13.3 mg into the skin daily. Neurologist, Dr. Rojas fills meds Active tamsulosin (FLOMAX) 0.4 mg 24 hr capsule Take 1 Capsule by mouth. Urologist, Sina fills meds Active atorvastatin (LIPITOR) 10 mg tablet TAKE 1 TABLET BY MOUTH 1 TIME EACH DAY. 90 tablet 1 07/04/20 25 Active levothyroxine (SYNTHROID, LEVOTHROID) 100 mcg tablet TAKE 1 TABLET BY MOUTH EVERY DAY 90 tablet 1 07/10/20 25 Active atorvastatin (LIPITOR) 10 mg tablet Take 1 tablet (10 mg total) by mouth 1 (one) time each day. 90 tablet 1 01/08/20 25 025 Discontinued levothyroxine (SYNTHROID, LEVOTHROID) 100 mcg tablet TAKE 1 TABLET BY MOUTH 1 TIME EACH DAY. 90 tablet 03/10/20 25 025 Discontinued Active Problems Problem Noted Date Diagnosed Date Limping 06/11/2025 Peripheral arterial occlusive disease ([facility] V 24) 06/11/2025 Abnormal chest x-ray 07/10/2024 Cataract 07/10/2024 Overview (08/29/2024): Surgery in 2022, Cataract removed from both eyes Chronic obstructive pulmonar y disease ([facility] V24, [facility] V28) 07/10/2024 Pulmonary nodules 10/30/2023 Benign prostatic hyperplasia without lower urinary tract symptoms 01/09/2023 Overview (08/29/2024): follows with Dr. Andino Central sleep apnea 01/14/2019 Overview (08/29/2024): cpap treatment through neurology - Dr Gonzalez [facility] Polysomnogram PAP treatment study. [...] See rheumatology note 03/2013 Peripheral vascular disease ([facility] V24) 2012 Overview (08/29/2024): Right leg pain: moderate fem pop disease on testing at [facility] vascular (2009) Back pain 11/26/2010 Overview [...] Bipolar 1 disorder with mode rate monica ([facility] V24, [facility] V28) 11/28/2005 Hypothyroidism 11/28/2005 Mixed hyperlipidemia 11/28/2005 Encounters Date Type Department Care Team Description 06/13/2025 Telephone Adult Medicine [address] [phone] Kesha Thomas NP 06/11/2025 9:45 AM EDT Office Visit Adult Medicine [address] [phone] Magdalena Webb MD MCI (mild cognitive impairment) (Primary Dx); Hypothyroidism, unspecified type; Tremor; Bipolar 1 disorder with moderate monica ([facility] V24, [facility] V28); Mixed hyperlipidemia; Benign prostatic hyperplasia without lower urinary tract symptoms; Need for prophylactic vaccination and inoculation against influenza 04/21/2025 9:24 AM EDT - 04/21/2025 11:59 PM EDT Hospital Encounter CT Scan - [address] [phone] Lung nodules Discharge Disposition: Home or Self [...] ,07/24/2007,09/03/2006,08/03/2005 Pfizer (ages 12 & older) Biv aledoyle, COVID-19 06/24/2022 Pneumococcal conjugate 13 va lent (Prevnar 13, PCV13) 2mo and older 12/30/2015 Pneumococcal polysaccharide 23 valent (Pneumovax 23) 2yo and older 07/27/2012 Td Tetanus diptheria (Tdvax) 7yo and older 12/29/2017 Tdap Tetanus diptheria acell ular pertussis (Boostrix; Adacel) 7yo and older 03/16/2007 Zoster Live 04/26/2013 Surgical History Surgery Date Site/Laterality Comments HERNIA REPAIR PROCEDURE: HISTORICAL HERNIA REPAIR/ING VASECTOMY PROCEDURE: PA VASECTOMY UNI/BI SPX W/POSTOP SEMEN EXAMS COLONOSCOPY 2002 N/A PROCEDURE: HISTORICAL COLONOSCOPY; COMMENT: diverticulosis COLONOSCOPY 2013 N/A PROCEDURE: HISTORICAL COLONOSCOPY; COMMENT: no polyps UPPER GASTROINTESTINAL ENDOSCOPY 09/28/2006 PROCEDURE: PA UPPER GI ENDOSCOPY PERFORMED; COMMENT: normal on PPI rx. Medical History Medical History Date Comments Unspecified hypothyroidism 11/28/2005 DX:Un specified hypothyroidism Bipolar disorder, unspecifie d ([facility] V24, [facility] V28) 11/28/2005 DX:Bipolar disorder, unspec ified ([facility]) Mixed hyperlipidemia 11/28/2005 DX:Mixed hy perlipidemia Diverticulosis of colon (wit hout mention of hemorrhage) 08/15/2006 DX:Diverticulosis of colon ( without mention of hemorrhage) Special screening for malign ant neoplasms, colon 08/15/2006 DX:Special screening for mal ignant neoplasms, colon; COMMENT: Negative colonoscopy 9.. performed for the investigation of minor rectal [...] care for your loved ones. For example, children librarian or elderly care for an older adult? [...] 1:00 PM EST Office Visit [place] [facility] [address] [place] [address] Magdalena Webb MD [address] [place] [address] Health Maintenance Due Date Last Done Comments [...] LAB CHEMISTRY METHOD 06/13/2025 2:03 PM EDT [facility] Blood Venous blood specimen / Unknown Venipuncture / Unknown 06/13/2025 10:39 AM EDT 06/13/2025 10:39 AM EDT Narrative [facility] - 06/13/2025 2:03 PM EDT The Siemens Advia Centaur Chemiluminescent Immunoassay is used. Results obtained with different assay methods or kits cannot be used interchangeably. Results cannot be interpreted as absolute evidence of the presence or absence of malignant disease. Kesha Thomas ASSISTANT OFFSET PRESS OPERATOR LAB BLOOD ORDERABLES Final R esult Performing Organization Address [facility] de Phone Number [facility] [address] [place] [address], [place] [phone] * Thyroid stimulating hormone with reflex to free t4 and free t3 (06/13/2025 10:39 AM EDT) TSH 1.73 0.40 - 4.00 mcIU/mL LAB CHEMISTRY METHOD 06/13/2025 2:31 PM EDT [facility] Blood Venous blood specimen / Unknown Venipuncture / Unknown 06/13/2025 10:39 AM EDT 06/13/2025 10:39 AM EDT Kesha Thomas ASSISTANT OFFSET PRESS OPERATOR LAB BLOOD ORDERABLES Final R esult Performing Organization Address [facility] de Phone Number [facility] [address] [place] [address], [place] [phone] * (ABNORMAL) Lipid panel with reflex to direct LDL (06/13/2025 10:39 AM EDT) Cholesterol 202(H) 0 - 200 mg/dL LAB CHEMISTRY METHOD 06/13/2025 1:19 PM EDT [facility] Triglycerides 138 0 - 150 mg/dL LAB CHEMISTRY METHOD 06/13/2025 1:19 PM EDT [facility] HDL 61 >=40 mg/dL LAB CHEMISTRY METHOD 06/13/2025 1:19 PM EDT [facility] LDL Calculated 113(H) 0 - 100 mg/dL LAB CHEMISTRY METHOD 06/13/2025 1:19 PM EDT [facility] Comment:Estimated LDL Calcul ated using equation: Total cholesterol - HDL cholesterol - (Triglycerides/5) VLDL Cholesterol Samuel 27.6 mg/dL LAB CHEMISTRY METHOD 06/13/2025 1:19 PM EDT [facility] Non HDL Chol. (LDL+VLDL) 141 <145 mg/dL LAB CHEMISTRY METHOD 06/13/2025 1:19 PM EDT [facility] Chol/HDL Ratio 3.3 0.0 - 4.4 LAB CHEMISTRY METHOD 06/13/2025 1:19 PM EDT [facility] Blood Venous blood specimen / Unknown Venipuncture / Unknown 06/13/2025 10:39 AM EDT 06/13/2025 10:39 AM EDT Kesha Thomas ASSISTANT OFFSET PRESS OPERATOR LAB BLOOD ORDERABLES Final R esult [facility] [address] [place] [address], * (ABNORMAL) Comprehensive metabolic panel (06/13/2025 10:39 AM EDT) Sodium 138 133 - 145 mmol/L LAB CHEMISTRY METHOD 06/13/2025 1:13 PM [facility] Potassium 3.8 3.5 - 5.5 mmol/L LAB CHEMISTRY METHOD 06/13/2025 1:13 PM [facility] Chloride 106 96 - 110 mmol/L LAB CHEMISTRY METHOD 06/13/2025 1:13 PM [facility] CO2 26 21 - 32 mmol/L LAB CHEMISTRY METHOD 06/13/2025 1:13 PM [facility] Anion Gap 6 3 - 11 LAB CHEMISTRY METHOD 06/13/2025 1:13 PM EDT [facility] Glucose 98 70 - 100 mg/dL LAB CHEMISTRY METHOD 06/13/2025 1:13 PM [facility] BUN 18 5 - 25 mg/dL LAB CHEMISTRY METHOD 06/13/2025 1:13 PM [facility] Creatinine 1.05 0.70 - 1.30 mg/dL LAB CHEMISTRY METHOD 06/13/2025 1:13 PM [facility] eGFR 73 >=60 mL/min/1. 73m2 LAB CHEMISTRY METHOD 06/13/2025 1:13 PM [facility] Comment:Calculation based on the Chronic Kidney Disease Epidemiology Collaboration (CKD-EPI) equation refit without adjustment for race. BUN/Creatinine Ratio 17.1 LAB CHEMISTRY METHOD 06/13/2025 1:13 PM [facility] Calcium 9.9 8.5 - 10.5 mg/dL LAB CHEMISTRY METHOD 06/13/2025 1:13 PM [facility] AST (SGOT) 24 10 - 42 unit/L LAB CHEMISTRY METHOD 06/13/2025 1:13 PM [facility] ALT (SGPT) 53 10 - 60 unit/L LAB CHEMISTRY METHOD 06/13/2025 1:13 PM [facility] Alkaline Phosphatase 135(H) 42 - 121 unit/L LAB CHEMISTRY METHOD 06/13/2025 1:13 PM [facility] Total Protein 6.9 6.0 - 8.0 g/dL LAB CHEMISTRY METHOD 06/13/2025 1:13 PM [facility] Albumin 3.6 3.2 - 5.0 g/dL LAB CHEMISTRY METHOD 06/13/2025 1:13 PM [facility] Total Bilirubin 0.5 0.0 - 1.4 mg/dL LAB CHEMISTRY METHOD 06/13/2025 1:13 PM [facility] Blood Venous blood specimen / Unknown Venipuncture / Unknown 06/13/2025 10:39 AM EDT 06/13/2025 10:39 AM EDT Kesha Thomas NP LAB BLOOD ORDERABLES Final R esult [facility] [address] [place] [address], * CBC auto differential (06/13/2025 10:33 AM EDT) WBC 6.9 4.8 - 10.8 K/mcL LAB HEMETOLOGY METHOD 06/13/2025 12:20 PM EDT [facility] RBC 5.50 4.50 - 5.50 M/mcL LAB HEMETOLOGY METHOD 06/13/2025 12:20 PM EDT [facility] Hemoglobin 15.9 13.5 - 17.5 g/dL LAB HEMETOLOGY METHOD 06/13/2025 12:20 PM EDT [facility] Hematocrit 49.7 42.0 - 54.0 % LAB HEMETOLOGY METHOD 06/13/2025 12:20 PM EDT [facility] MCV 90.7 79.0 - 98.0 FL LAB HEMETOLOGY METHOD 06/13/2025 12:20 PM EDT [facility] MCH 29.0 27.0 - 32.0 pcg LAB HEMETOLOGY METHOD 06/13/2025 12:20 PM EDT [facility] MCHC 32.0 32.0 - 37.0 g/dL LAB HEMETOLOGY METHOD 06/13/2025 12:20 PM EDT [facility] RDW 13.1 11.0 - 15.0 % LAB HEMETOLOGY METHOD 06/13/2025 12:20 PM EDT [facility] Platelets 251 130 - 400 K/mcL LAB HEMETOLOGY METHOD 06/13/2025 12:20 PM EDT [facility] MPV 10.3 7.0 - 11.0 FL LAB HEMETOLOGY METHOD 06/13/2025 12:20 PM EDT [facility] NRBC 0.0 <1.0 % LAB HEMETOLOGY METHOD 06/13[facility]25 [facility] NR[facility] Absolute 0.00 <0.10 K/mcL LAB HEMETOLOGY METHOD 06/13/2025 12:20 PM EDT [facility] Neutrophils Relative 63.4 % LAB HEMETOLOGY METHOD 06/13/2025 12:20 [facility] Lymphocytes Relative 23.1 % LAB HEMETOLOGY METHOD 06/13/2025 12:20 PM [facility] Monocytes Relative 10.2 % LAB HEMETOLOGY METHOD 06/13/2025 12:20 PM [facility] Eosinophils Relative 2.6 % LAB HEMETOLOGY METHOD 06/13/2025 12:20 PM [facility] Basophils Relative 0.4 % LAB HEMETOLOGY METHOD 06/13/2025 12:20 PM [facility] Immature Granulocytes Relative 0.3 % LAB HEMETOLOGY METHOD 06/13/2025 12:20 PM [facility] Neutrophils Absolute 4.36 1.50 - 7.00 K/mcL LAB HEMETOLOGY METHOD 06/13/2025 12:20 PM EDT [facility] Lymphocytes Absolute 1.59 1.00 - 5.00 K/mcL LAB HEMETOLOGY METHOD 06/13/2025 12:20 PM EDT [facility] Monocytes Absolute 0.70 0.20 - 1.00 K/mcL LAB HEMETOLOGY METHOD 06/13/2025 12:20 PM [facility] Eosinophils Absolute 0.18 0.00 - 0.50 K/mcL LAB HEMETOLOGY METHOD 06/13/2025 12:20 PM EDT [facility] Basophils Absolute 0.03 0.00 - 0.20 K/[facility] LAB HEMETOLOGY METHOD 06/13/2025 12:20 PM EDT [facility] Immature Granulocytes Absolute 0.02 0.00 - 0.03 K/[facility] LAB HEMETOLOGY METHOD 06/13/2025 12:20 PM EDT [facility] Blood Venous blood specimen / Unknown 06/13/2025 10:33 AM EDT 06/13/2025 10:33 AM EDT us Kesha Thomas ASSISTANT OFFSET PRESS OPERATOR LAB BLOOD ORDERABLES Final R esult [facility]) [facility] [address] [place] [address], [place] [phone] * CT Chest wo Contrast (04/21/2025 9:37 AM EDT) Anatomical Region Laterality Modality Body Computed Tomogra phy 04/22/2025 9:59 AM EDT Impressions 04/22/2025 8:12 PM EDT Stable small bilateral calcified pulmonary nodules. No new nodule detected. POS - [id number] -------- FINAL REPORT -------- Dictated By: Leia Ortez Dictated Date: 04/22/2025 09:59 ET Assigned Physician: Leia Ortez Reviewed and Electronically Signed By: Leia Ortez Signed Date: 04/22/2025 20:12 ET Workstation ID: [id number] Transcribed By: Self Edit Transcribed Date: 04/22/2025 [...] pulmonary nodules. No new noduledetected. POS - [id number] -------- FINAL REPORT -------- Dictated By: Leia Ortez Dictated Date: 04/22/2025 09:59 ET Assigned Physician: Leia Ortez Reviewed and Electronically Signed By: Leia Ortez Signed Date: 04/22/2025 20:12 ET Workstation ID: [id number] Transcribed By: Self Edit Transcribed Date: 04/22/2025 10:16 ET Bhavani Platt MD IMG CT PROCEDURES Final Result * Hepatitis C Screening (10/23/2013) Hepatitis C Screening Abstracted us Historical Provider HEALTH MAINTENANCE Final Result from Last 3 Months or Most Recently Relevant to Health Maintenance Insurance [facility] Care Teams Supervisor Transferring And Boxing Relationship Specialty Start Date End Date Magdalena Webb MD [address] [place] [address] PCP - General 09/21/10
== END 2025-07-11 11:17 | disposition home or self-care (01) ==
LOC: HO.HUSH 10:08
PROVIDERS: PCP Internal Medicine; Visit Provider Urology
DX: Z13.9 Encounter for screening, unspecified (principal)

== ENCOUNTER → 2025-07-11 10:07 | Outpatient (BNVA) | payer OTHER, SELFPAY | PROVIDERS: PCP Internal Medicine; Visit Provider Urology | DX: N40.1 Benign prostatic hyperplasia with lower urinary tract symptoms (principal) | CPT/HCPCS: 51798; 81003 ==